=== PATIENT | male | born 1935 | race African-American/Black ===

== ENCOUNTER 2017-08-30 10:16 | Inpatient (IN) ==
--- NOTE | 2017-08-30 11:35 | Anesthesia Evaluation PreOp ---
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 GUARD DISPATCHER History: Denies Any Significant HX Other Medical History: Denies Any Significant HX Anesthesia History: No Prior Anesthetic Complications, Past Anesthesia Alcohol Use: none Drug use: none Medications and Allergies Allopurinol [Zyloprim] 100 mg PO DAILY 05/22/15 [History] Finasteride [Propecia] 5 mg PO DAILY 05/22/15 [History] Losartan [Cozaar] 50 mg PO DAILY 05/22/15 [History] Simvastatin [Zocor] 20 mg PO HS 05/22/15 [History] Aspirin [Ecotrin] 325 mg PO DAILY 08/30/17 [History] Furosemide [Lasix] 40 mg PO DAILY 08/30/17 [History] Losartan Potassium [Cozaar] 50 mg PO DAILY 08/30/17 [History] 3 Allergy/AdvReac Type Severity Reaction Status Date / Time No Known Allergies Allergy Verified 09/25/16 10:04 - Meds/Allergy Pre-op Review Medications Reviewed: Yes Allergies Reviewed: Yes Beta Blockers on Current Med List: Yes If Beta Blockers taken, Date/Time (Last Dose taken): 08/30/2017 at 0800 Anesthesia Results - Labs Laboratory Tests 07/15/15 08/26/17 08/26/17 10:40 13:06 13:06 WBC 10.2 Hgb 12.6 L Hct 39.9 Plt Count 233 PT 12.0 INR 1.12 PTT 31.1 Sodium 140 Potassium 4.2 BUN 22 Creatinine 1.29 H - Imaging EKG: report reviewed (08/26/[address] DEPRESSION , CONSIDER SUBENDOCARDIAL INJURY) Additional studies: 07/14/2017 ALEENA Impressions: Moderately sclerotic probably trileaflet aortic valve (the left cusp appears fixed and immobile). There is moderate aortic stenosis by Doppler (DI 0.38, TRACEE 1.2cm2) and severe by planimetry area 0.9cm2. 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 Left to right interatrial shunt by color flow imaging. 06/07/2017 Echo Impressions: Mild LV systolic dysfunction, LVEF 45%. Normal right ventricular size and function. A device lead was visualized in the right atrium and right ventricle. Moderate-severely calcified aortic valve leaflets. Cannot determine if bicuspid or tricuspid on this study. Moderate-severe aortic stenosis. Mild mitral regurgitation. Mild tricuspid regurgitation. Mild pulmonary hypertension. Estimated RVSP = 44 mmHg. Anesthesia Exam O2 Sat Height 1.75 m Weight 108.046 kg O2 Sat by Pulse Oximetry 97 Vital Signs Temp Pulse Resp BP Pulse Ox 97.5 F L 85 16 121/88 97 08/30/17 11:31 08/30/17 11:31 08/30/17 11:31 08/30/17 11:31 08/30/17 11:31 Height: 5'9'' Weight: 238 lbs NPO (# of Hours): 8 Pain Scale: 0 Pain Scale Used: Numeric (1 - 10) - HEENT Pupil (Motor): EOMI Mallampati: III Teeth: Missing, Poor dentition (loose lower teeth) Oral Opening: Greater than 3 - SECURITY GUARD DISPATCHER LOC: Oriented SECURITY GUARD DISPATCHER Motor: Normal RUE, Normal LUE, Normal RLE, Normal LLE, Normal Face SECURITY GUARD DISPATCHER Sensory: Normal: RUE, LUE, RLE, LLE, Face - Cardiac Rhythm: Regular Murmur: Systolic - Pulmonary Breath Sounds: bilateral Rhonchi Respiratory Effort: Symmetrical Anesthesia Assess/Plan ASA Score: 4 (Patient and family understand that patient is at increased risk for perioperative complications including myocardial infarct, arrhythmias, CVA, post op vent support/ICU stay, and . Patient wishes to proceed.) Modified Kris Scale for Level of Consciousness: Cooperative, oriented, and tranquil Anesthetic Plan: General Monitoring Plan: Standard Monitors Recovery Plan: PACU <Marybeth Santos - Last Filed: 08/30/17 13:35> Date of Encounter: 08/30/17 Anesthesia Assess/Plan Monitoring Plan: A-Line
[2017-08-30] MEDS: Ringers Solution, Lactated 1,000 ML IVC SCH (11:36)
--- NOTE | 2017-08-30 12:33 | History & Physical Report ---
Date of Encounter: 08/30/17 Time of Encounter: 12:00 24 Hour HP Update - Instructions Instructions: If the History and Physical is less than 30 days old and was completed prior to A.M. admission and or procedure and has NOT been updated on calendar day of procedure please complete this update prior to performing procedure. - Update Patient reports changes in Medical Condition: No Changes in examination, assessment, or condition: No Changes in Medication: No Preop tests/diagnostics Reviewed: Yes Surgery Remains Indicated: Yes Consent for Planned Operative Procedure(s) Verified: Yes
[2017-08-30] MEDS ORDERED: Lidocaine -MPF 2% 2 ML VIAL ONE (13:31)
[2017-08-30] MEDS ORDERED: *HR* Propofol 200 MG/20 ML VIAL IVP ONE (13:31)
[2017-08-30] MEDS ORDERED: Ondansetron 4 MG/2 ML VIAL ONE (13:31)
[2017-08-30] MEDS ORDERED: Dexamethasone 4 MG/ML VIAL ONE (13:31)
[2017-08-30] MEDS ORDERED: *HR* Succinylcholine 200 MG/10 ML VIAL IVP ONE (13:31)
[2017-08-30] MEDS ORDERED: Heparin 25,000 UNIT/500 ML D5W 25,000 UNIT/500 ML BAG IVC ONE (13:51)
[2017-08-30] MEDS ORDERED: Heparin 1,000 UNITS/500 mL NS 500 ML ONE (13:59)
[2017-08-30] MEDS ORDERED: *HR* Etomidate 40 MG/20 ML VIAL IVP ONE (14:17)
[2017-08-30] MEDS ORDERED: *HR* FentaNYL (PF) 100 MCG/2 ML VIAL ONE (14:34)
[2017-08-30] MEDS ORDERED: *HR* Midazolam HCl 2 MG/2 ML VIAL ONE (14:34)
[2017-08-30] MEDS ORDERED: *HR* Phenylephrine 10 MG/ML VIAL ONE (14:46)
[2017-08-30] MEDS ORDERED: Ondansetron 4 MG/2 ML VIAL IVP ONE (15:22)
[2017-08-30] MEDS ORDERED: Dexmedetomidine HCl 200 MCG/50 ML MLS IVC ONE (16:02)
[2017-08-30] MEDS ORDERED: Albuterol 2.5 MG/3 ML NEBULIZER ONE (16:05)
[2017-08-30] MEDS ORDERED: Albuterol 2.5 MG/3 ML NEBULIZER IH ONE (16:06)
[2017-08-30] MEDS ORDERED: Albumin Human 5% 25.0 GM/500 ML VIAL ONE (16:41)
[2017-08-30] MEDS ORDERED: Naloxone 0.4 MG/ML INJ IVP PRN (17:17)
--- NOTE | 2017-08-30 17:25 | Internal Med History&Physical ---
<Obrien,Manjula J - Last Filed: 08/30/17 17:51> Date of Encounter: 08/30/17 Time of Encounter: 17:23 Assessment and Plan (1) Acute and chronic respiratory failure with hypoxia Current visit: Yes Status: Acute wears O2 at home. Now hypoxic with saturations in the 70s following bronchoscopy requiring nonrebreather. With diffuse wheezing on exam. Multifactorial with underlying COPD with apparent exacerbation, anesthesia and possible lung malignancy. Start IV Levaquin, IV steroids and bronchodilators. Nonrebreather for now, may need BiPAP. CXR, ABG pending. Pulmonology consulted (2) Lung mass Current visit: Yes Status: Acute Presented 08/30/2017 for planned bronchoscopy. Mass reported as lesional. Await final pathology (3) Hypotension Current visit: Yes Status: Acute With SBP's in 70s to 80s post bronchoscopy. Suspect secondary to anesthesia. Hemodynamically stable, no tachycardia, maintaining mentation. IV fluids, hold home BP medication. Monitor BP Qualifiers: Hypotension type: postprocedural hypotension Qualified Code(s): I95.81 - Postprocedural hypotension (4) Hemoptysis Current visit: Yes Status: Acute Following bronchoscopy. CBC pending. Holding home ASA. (5) COPD (chronic obstructive pulmonary disease) Current visit: Yes Status: Acute per hx. wears oxygen [id number] at home. Now with acute on chronic respiratory failure as noted above. Treating for COPD exacerbation with IV fluids, IV steroids and bronchodilators. Qualifiers: COPD type: COPD with acute exacerbation Qualified Code(s): J44.1 - Chronic obstructive pulmonary disease with (acute) exacerbation (6) HTN (hypertension) Current visit: No Status: Acute per hx. holding home antihypertensives with hypotension. Resume his BP allows. Qualifiers: Hypertension type: essential hypertension Qualified Code(s): I10 - Essential (primary) hypertension (7) Aortic stenosis with trileaflet valve Current visit: Yes Status: Acute per hx. 10/2016 TTE with moderately sclerotic probably trileaflet aortic valve, moderate aortic stenosis. (8) Cardiomyopathy Current visit: No Status: Acute per hx. 10/2016 TTE ith EF 40% and reduced LV function. Has PPM. Holding home Lasix, ARB with hypotension. Resume home medications as clinical condition improves. Qualifiers: Cardiomyopathy type: unspecified Qualified Code(s): I42.9 - Cardiomyopathy , unspecified (9) DVT prophylaxis Current visit: Yes Status: Acute SCD Internal Medicine - H&P: HPI Chief complaint: hypoxia Admitted From: Home History of present illness: Mr. Faust is a 82 year old male with COPD, HTN and lung mass who presented to [facility] on 08/30/2017 for planned proctoscopy. He was subsequently hypoxic and hypotensive postprocedure therefore he was admitted for further workup and treatment. Information obtained mostly from chart review as the patient appears to be in mild resp distress and unable give many details. Per chart review, patient underwent a bronchoscopy with hypotension, hypoxia and hemoptysis postprocedure. He endorses shortness of breath, no chest pain. Past Med Surg Social Fam HX - Past Medical History Medical history: arthritis, cardiomyopathy, diabetes, hyperlipidemia, hypertension, valvular heart disease Psychiatric history: no psych history - Past Surgical History Surgical History: pacemaker/AICD - Social History Smoking Status: Unknown if ever smoked Smokeless Tobacco Status: No Alcohol use: none Drug use: none - Family History Mother Living Status: Hx Family Cancer: Yes Internal Medicine - H&P: Meds Allopurinol [Zyloprim] 100 mg PO DAILY 05/22/15 [History] Finasteride [Propecia] 5 mg PO DAILY 05/22/15 [History] Losartan [Cozaar] 50 mg PO DAILY 05/22/15 [History] Simvastatin [Zocor] 20 mg PO HS 05/22/15 [History] Aspirin [Ecotrin] 325 mg PO DAILY 08/30/17 [History] Furosemide [Lasix] 40 mg PO DAILY 08/30/17 [History] Losartan Potassium [Cozaar] 50 mg PO DAILY 08/30/17 [History] 3 Allergy/AdvReac Type Severity Reaction Status Date / Time No Known Allergies Allergy Verified 09/25/16 10:04 All Systems PM: A 10-system review of systems was performed and is negative for pertinent findings except as documented above in the HPI. - Constitutional Constitutional: no chills, no fever(s), no night sweats - EENT Eyes: no change in vision, no discharge, no pain, no photophobia Ears: no ear discharge, no ear pain, no tinnitus Nose, mouth and throat: no dysphagia, no nasal discharge, no neck pain, no sore throat - Cardiovascular Cardiovascular ROS IM: no chest pain, no diaphoresis, no dyspnea, no lightheadedness, no palpitations, no syncope - Respiratory Respiratory: cough, dyspnea, hemoptysis, no wheezing, no excessive phlegm production - Gastrointestinal Gastrointestinal: no abdominal pain, no diarrhea, no hematemesis, no hematochezia, no melena, no nausea, no vomiting - Musculoskeletal Musculoskeletal ROS IM: no numbness, no tingling - Integumentary Integumentary IM: no rash, no unusual bruising - Neurological Neurological ROS: no confusion, no convulsions, no focal weakness, no numbness, no tingling, no tremor(s) - Hematologic/Lymphatic Hematologic/Lymphatic: no easy bruising - Constitutional Vitals: Temp Pulse Resp BP Pulse Ox 97.6 F 88 30 123/68 91 08/30/17 17:20 08/30/17 17:20 08/30/17 17:20 08/30/17 17:20 08/30/17 17:20 General appearance: Present: mild distress, A&O X 3, morbidly obese - Head Head exam: Present: atraumatic, normocephalic - Eye Eye exam: Present: PERRL, conjuntiva pink, sclera anicteric Pupils: Present: PERRL - Neck Neck exam general surgery: Present: supple, trachea midline. Absent: lymphadenopathy - Respiratory Respiratory exam: Present: wheezes. Absent: accessory muscle use, rales, rhonchi - Cardiovascular Cardiovascular exam: Present: RRR, +S1, +S2. Absent: diastolic murmur, gallop, rubs, systolic murmur - GI/Abdominal GI/Abdominal exam: Present: normal bowel sounds, soft, no peritoneal signs. Absent: distended, tenderness - Extremities Exam Extremities exam: Present: warm, radial pulses palpable and symmetrical. Absent : calf tenderness, cyanotic, pedal edema - Neurological Exam Neurological exam: Present: CN II-XII intact, oriented X3, no focal deficits. Absent: pronater drift, facial droop, speech deficit - Skin Skin exam: Present: dry, intact <Peyton,Liam P - Last Filed: 08/30/17 18:37> Date of Encounter: 08/30/17 Internal Medicine - H&P: HPI History of present illness: Mr. Faust is a 82 year old male All Systems PM: A 10-system review of systems was performed and is negative for pertinent findings except as documented above in the HPI. - Constitutional Vitals: Temp Pulse Resp BP Pulse Ox 97.6 F 113 30 123/68 94 08/30/17 17:20 08/30/17 18:19 08/30/17 17:20 08/30/17 17:20 08/30/17 17:59 Internal Med - H&P Results - Labs CBC & Chem 7: 08/30/17 17:53 08/30/17 17:53 Labs: Short CBC 08/30/17 Range/Units 17:53 WBC 15.4 H D (4.3-11.1) K/mcL Hgb 13.3 (12.9-16.9) g/dL Hct 43.3 (37.5-50.1) % Plt Count 232 (140-400) K/mcL BMP 08/30/17 17:53 Sodium 137 Potassium 5.6 H Chloride 107 Carbon Dioxide 22 L BUN 19 Creatinine 1.26 Glucose 128 H Calcium 9.2 - ABG Interpretation ABG results: 08/30/17 18:21 ABG pH 7.36 ABG pCO2 48 H ABG pO2 70 L ABG HCO3 27 ABG Total CO2 28 H ABG O2 Saturation 93 L ABG Base Excess 1 - Attending Attestation I examined this patient and my medical decision-making was reviewed with the Resident Physician/ KNOCKER OFF. I agree with the documented findings, disposition and treatment plan as described except to the extent set forth below. 82/male. Patient had a left lung mass for which she underwent bronchoscopy/bronchoscopy biopsy. Postprocedure patient's saturation/blood pressure was on the lower side. It was decided to admit patient overnight for observation. On examination: Patient is wheezing and coughing mucopurulent expectoration. Assessment/plan. Antibiotics: Levofloxacin 750 mg every 24 hours Steroids: Solu-Medrol 40 mg every 8. Bronchodilators: DuoNeb every 4 hours. Close observation. Likely patient can go home tomorrow.
[2017-08-30] MEDS ORDERED: Levofloxacin 750 MG/150 ML 750 MG/150 ML BAG IVPB SCH (18:00)
[2017-08-30 18:02] LABS: Hematocrit 43.3 % (37.5-50.1); Hemoglobin 13.3 g/dL (12.9-16.9); Mean Corpuscular HGB Conc 30.7 g/dL (31.6-35.5); Mean Corpuscular Volume 87.8 fL (83.0-100.0); Mean Platelet Volume 11.6 fL (9.4-12.4); Platelet Count 232 K/mcL (140-400); Red Blood Count 4.93 M/mcL (4.19-5.50); Red Cell Distribution Width 17.5 % (11.5-14.5)
[2017-08-30 18:20] LABS: BUN/Creatinine Ratio 15 (6-26); Blood Urea Nitrogen 19 mg/dL (8-23); Calcium 9.2 mg/dL (8.6-10.3); Carbon Dioxide 22 mEq/L (23-29); Chloride 107 mEq/L (98-107); Glucose 128 mg/dL (70-105); Osmolality,Calculated 288 (280-300); Potassium 5.6 mEq/L (3.5-5.1); Sodium 137 mEq/L (136-145); eGFR For African Americans > 60 (> 60); eGFR For Non-African Americans 55 (> 60)
[2017-08-30 18:25] LABS: ABG Base Excess 1 mEq/L (-2 to 3); ABG HCO3 27 mEq/L (21-27); ABG Oxygen Saturation 93 % (95-98); ABG PCO2 48 mmHg (35-45); ABG PH 7.36 pH Units (7.32-7.45); ABG PO2 70 mmHg (85-104); ABG TCO2 28 mEq/L (20-26)
[2017-08-30] MEDS: Ipratropium/Albuterol Neb 3 ML IH SCH ×2 (19:38→23:29)
[2017-08-30] MEDS: 0.9 % Sodium Chloride 1,000 ML IVC SCH (20:45)
[2017-08-30 21:20] LABS: Appearance of Body Fluid Hazy (Clear); Volume of Body Fluid 14 mL
[2017-08-31] MEDS: MethylPREDNISolone 40 MG/ML VIAL IVP SCH ×3 (01:00→17:13)
[2017-08-31] MEDS: Ipratropium/Albuterol Neb 3 ML IH SCH ×5 (03:10→20:14)
[2017-08-31 05:18] LABS: Hematocrit 35.8 % (37.5-50.1); Mean Corpuscular HGB Conc 30.7 g/dL (31.6-35.5); Mean Corpuscular Hemoglobin 26.6 pg (28.0-33.3); Mean Corpuscular Volume 86.5 fL (83.0-100.0); Mean Platelet Volume 11.7 fL (9.4-12.4); Platelet Count 190 K/mcL (140-400); Red Blood Count 4.14 M/mcL (4.19-5.50); Red Cell Distribution Width 17.2 % (11.5-14.5)
[2017-08-31 05:38] LABS: BUN/Creatinine Ratio 17 (6-26); Blood Urea Nitrogen 22 mg/dL (8-23); Calcium 8.9 mg/dL (8.6-10.3); Carbon Dioxide 26 mEq/L (23-29); Chloride 105 mEq/L (98-107); Glucose 132 mg/dL (70-105); Osmolality,Calculated 295 (280-300); Potassium 4.2 mEq/L (3.5-5.1); Sodium 140 mEq/L (136-145); eGFR For African Americans > 60 (> 60); eGFR For Non-African Americans 54 (> 60)
[2017-08-31] MEDS: 0.9 % Sodium Chloride 1,000 ML IVC SCH (07:05)
[2017-08-31] MEDS: Finasteride 5 MG TABLET PO SCH (08:03)
[2017-08-31] MEDS: Ringers Solution, Lactated 1,000 ML IVC SCH (08:13)
--- NOTE | 2017-08-31 08:40 | Pulmonology Consult Note ---
<Kiran Fuentes - Last Filed: 08/31/17 17:55> Date of Encounter: 08/31/17 Time of Encounter: 08:37 Assessment and Plan (1) Acute and chronic respiratory failure with hypoxia Current Visit: Yes Status: Acute Pt with Hx of O2 dependent COPD Pt on 2L at home Pt dropped O2 sats into the 70s following bronchoscopy Pt started on Non rebreather Pt now on 4L NC Pt started on IV levaquin, IV steroids, Duonebs Pt reports breathing is improved now CXR showed "Multifocal left lung infiltrates may reflect pneumnia in the correct clinical setting. R infrahilar consolidation is consistent with known right lower lobe mass like consolidation." AB.36/48/70/27//1 Plan: Continue Abx, steroids, duonebs Wean O2 down to home dose (2) Lung mass Current Visit: Yes Status: Acute Pt was undergoing bronchoscopy for biopsy of RLL mass Plan: Await pathology (3) Hypotension Current Visit: Yes Status: Acute Pt had Systolic BP in the 70s and 80s post Bronchoscopy Pt on Lactated ringers IV rehydration Now hemodynamically stable Plan: Continue IV fluids Continue to hold home BP meds Qualifiers: Hypotension type: postprocedural hypotension Qualified Code(s): I95.81 - Postprocedural hypotension (4) Hemoptysis Current Visit: Yes Status: Acute S/P bronchoscopy likely 2/2 to irritation from Bronchoscopy Per patient Rate Hemoptysis is slowing down CBC: Hgb 11, hct 35.8, Plt 196 Plan: Continue to hold home ASA Continue to use SCDs for DVT PPx (5) COPD (chronic obstructive pulmonary disease) Current Visit: Yes Status: Acute Pt on Home O2 at all times. Acute exacerbation on chronic COPD Plan: Continue IV solumedrol Continue Duonebs Continue IV abx Qualifiers: COPD type: COPD with acute exacerbation Qualified Code(s): J44.1 - Chronic obstructive pulmonary disease with (acute) exacerbation (6) HTN (hypertension) Current Visit: No Status: Acute Pt c Hx of HTN Plan: Continue to hold home medications 2/2 hypotension Qualifiers: Hypertension type: essential hypertension Qualified Code(s): I10 - Essential (primary) hypertension (7) Hyperlipidemia Current Visit: No Status: Acute Pt c Hx of HLD Plan: Continue home Statin Qualifiers: Hyperlipidemia type: unspecified Qualified Code(s): E78.5 - Hyperlipidemia , unspecified (8) Cardiomyopathy Current Visit: No Status: Acute Pt c Hx of cardiomyopathy TTE 10/2016 showed EF 40% Pt has AICD and Pacemaker in place Plan: Continue to hold home Lasix, ARB 2/2 hypotension Qualifiers: Cardiomyopathy type: unspecified Qualified Code(s): I42.9 - Cardiomyopathy , unspecified (9) Aortic stenosis with trileaflet valve Current Visit: Yes Status: Acute Pt with Hx of prominent murmur on exam (10) DVT prophylaxis Current Visit: Yes Status: Acute On SCDs 2/2 hemoptysis History of Present Illness Consult date: 08/30/17 Requesting physician: Manjula Obrien Reason for consult: hypoxemia, other (acute on chronic respiratory failure) Chief complaint: Hypovolemia, Acute on Chronic Respiratory Failure, Hemoptysis History of present illness: 82 yo M c PMHx of COPD, HTN, HLD, Aortic Stenosis, DM, AICD/Pacemaker, Known RLL mass who presents to [facility] for an out patient broncoscopy for biopsy of RLL lung mass. Patient became Hypotensive and hypoxic during procedure and went into acute on chronic respiratory failure. patient also had Hemoptysis post procedure. Today patient is hemodynamically stable. he reports his breathing is better per the patient, he is now on NC. Patient reports the hemoptysis is improved as well. Past Med Surg Social Fam HX - Past Medical History Medical history: arthritis, cardiomyopathy, COPD, coronary artery disease, diabetes, hyperlipidemia, hypertension, valvular heart disease, other Psychiatric history: no psych history - Past Surgical History Surgical History: pacemaker/AICD - Social History Smoking Status: Former smoker Smokeless Tobacco Status: No Alcohol use: none Drug use: none - Family History Mother Living Status: Hx Family Cancer: Yes Medications and Allergies Allopurinol [Zyloprim] 100 mg PO DAILY 05/22/15 [History] Finasteride [Propecia] 5 mg PO DAILY 05/22/15 [History] Losartan [Cozaar] 50 mg PO DAILY 05/22/15 [History] Simvastatin [Zocor] 20 mg PO HS 05/22/15 [History] Aspirin [Ecotrin] 325 mg PO DAILY 08/30/17 [History] Furosemide [Lasix] 40 mg PO DAILY 08/30/17 [History] Losartan Potassium [Cozaar] 50 mg PO DAILY 08/30/17 [History] 3 Allergy/AdvReac Type Severity Reaction Status Date / Time No Known Allergies Allergy Verified 09/25/16 10:04 All Systems: A 10-system review of systems was performed and is negative for pertinent findings except as documented above in the HPI. - Constitutional Constitutional: no fever(s) - Cardiovascular Cardiovascular: no chest pain - Respiratory Respiratory: cough, hemoptysis - Gastrointestinal Gastrointestinal: no abdominal pain - Genitourinary Genitourinary: no dysuria - Musculoskeletal Musculoskeletal: no joint pain Physical Examination Vital Signs: Vital Signs, Last 4 Hours Temp Pulse Resp BP Pulse Ox 08/31/17 07:25 20 94 08/31/17 07:00 71 21 107/59 93 08/31/17 05:53 95 08/31/17 04:55 98.3 F 08/31/17 04:47 80 24 92/45 89 General appearance: no acute distress Eyes: nonicteric ENT: oropharynx moist Neck: supple Effort: normal Inspection: normal Auscultation: bilateral: clear Cardiovascular: regular rate and rhythm, murmur noted (Aortic Stenosis) Gastrointestinal: normoactive bowel sounds, soft, non-tender, non-distended Integumentary: normal Extremities: no cyanosis Musculoskeletal: no deformities normal mental status mood appropriate, affect normal Results - Laboratory Findings CBC and BMP: 08/31/17 04:41 08/31/17 04:41 ABG ABG pH 7.36 pH Units (7.32-7.45) 08/30/17 18:21 ABG pCO2 48 mmHg (35-45) H 08/30/17 18:21 ABG pO2 70 mmHg (85-104) L 08/30/17 18:21 ABG O2 Saturation 93 % (95-98) L 08/30/17 18:21 Abnormal lab findings: Abnormal lab results WBC 21.3 K/mcL (4.3-11.1) H 08/31/17 04:41 RBC 4.14 M/mcL (4.19-5.50) L 08/31/17 04:41 Hgb 11.0 g/dL (12.9-16.9) L D 08/31/17 04:41 Hct 35.8 % (37.5-50.1) L 08/31/17 04:41 MCH 26.6 pg (28.0-33.3) L 08/31/17 04:41 MCHC 30.7 g/dL (31.6-35.5) L 08/31/17 04:41 RDW 17.2 % (11.5-14.5) H 08/31/17 04:41 ABG pCO2 48 mmHg (35-45) H 08/30/17 18:21 ABG pO2 70 mmHg (85-104) L 08/30/17 18:21 ABG Total CO2 28 mEq/L (20-26) H 08/30/17 18:21 ABG O2 Saturation 93 % (95-98) L 08/30/17 18:21 Est GFR (Non-Af Amer) 54 (> 60) L 08/31/17 04:41 Glucose 132 mg/dL (70-105) H 08/31/17 04:41 POC Glucose 106 (58-89) H 08/30/17 17:50 Fluid Appearance Hazy (Clear) A 08/30/17 14:56 - Microbiology Findings Microbiology Findings: Microbiology, Last 48 Hours 08/30/17 14:56 Gram Stain - Final Left Lower Lobe Lung - Clinical Findings Intake & Output: Intake & Output 08/30/17 08/31/17 08/31/17 23:59 07:59 15:59 Intake Total 300 / 300 825 / 825 Output Total 900 / 900 450 / 450 Balance -600 / -600 375 / 375 Weight 112.1 kg Consult Discharge Plan - Plan Referrals: Cherry Davidson OUTSIDE MACHINIST HELPER [Advanced Practice Nurse] - 09/08/17 11:00 am <Alis Johnson S - Last Filed: 08/31/17 20:14> Date of Encounter: 08/31/17 All Systems: A 10-system review of systems was performed and is negative for pertinent findings except as documented above in the HPI. Physical Examination Vital Signs: Vital Signs, Last 4 Hours Temp Pulse Resp BP Pulse Ox 08/31/17 18:16 100 16 91 08/31/17 17:19 77 16 94 08/31/17 16:37 97.8 F 82 15 122/62 94 Results - Laboratory Findings CBC and BMP: 08/31/17 04:41 08/31/17 04:41 ABG ABG pH 7.36 pH Units (7.32-7.45) 08/30/17 18:21 ABG pCO2 48 mmHg (35-45) H 08/30/17 18:21 ABG pO2 70 mmHg (85-104) L 08/30/17 18:21 ABG O2 Saturation 93 % (95-98) L 08/30/17 18:21 Abnormal lab findings: Abnormal lab results WBC 21.3 K/mcL (4.3-11.1) H 08/31/17 04:41 RBC 4.14 M/mcL (4.19-5.50) L 08/31/17 04:41 Hgb 11.0 g/dL (12.9-16.9) L D 08/31/17 04:41 Hct 35.8 % (37.5-50.1) L 08/31/17 04:41 MCH 26.6 pg (28.0-33.3) L 08/31/17 04:41 MCHC 30.7 g/dL (31.6-35.5) L 08/31/17 04:41 RDW 17.2 % (11.5-14.5) H 08/31/17 04:41 ABG pCO2 48 mmHg (35-45) H 08/30/17 18:21 ABG pO2 70 mmHg (85-104) L 08/30/17 18:21 ABG Total CO2 28 mEq/L (20-26) H 08/30/17 18:21 ABG O2 Saturation 93 % (95-98) L 08/30/17 18:21 Est GFR (Non-Af Amer) 54 (> 60) L 08/31/17 04:41 Glucose 132 mg/dL (70-105) H 08/31/17 04:41 POC Glucose 118 (58-89) H 08/31/17 16:46 Fluid Appearance Hazy (Clear) A 08/30/17 14:56 - Microbiology Findings Microbiology Findings: Microbiology, Last 48 Hours 08/30/17 14:56 Respiratory Culture - Preliminary Left Lower Lobe Lung Normal upper respiratory tract dary. No apparent pathogens isolated. 08/30/17 14:56 Gram Stain - Final Left Lower Lobe Lung - Clinical Findings Intake & Output: Intake & Output 08/31/17 08/31/17 08/31/17 07:59 15:59 23:59 Intake Total 825 / 825 750 / 750 Output Total 450 / 450 0 / 0 100 / 100 Balance 375 / 375 0 / 0 650 / 650 Weight 112.1 kg - Attending Attestation I saw the patient with the resident agree with History and Physical exam findings. 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 Has minimal hemoptysis expected after the procedure Cardiac : Hemodynamically stable Nutrition/GI: To start diet Renal : Labs and output reviewed ID : no evidence of infection Heme onc : No acute issues Musculo skeletal / skin issues : no acute issues Disposition : Transfer to Code status: Full Code Family/POA: Didnt meet the family yet
[2017-08-31] MEDS ORDERED: Levofloxacin 750 MG/150 ML 750 MG/150 ML BAG IVPB SCH (17:00)
--- NOTE | 2017-08-31 20:06 | Electrocardiograph Report ---
[address] [address] Test Date: 2017-08-30 Pat Name: Preston Faust Department: 109 Room: 2N03 Gender: M Mend Worker: : 1935 Requested By: Liam Todd Order Number: [id number] Reading MD: Ozzie Mahoney MD Measurements Intervals Lacey Rate: 119 P: 215 HI: 176 QRS: 214 QRSD: 151 T: 35 QT: 365 QTc: 436 Interpretive Statements ELECTRONIC VENTRICULAR PACEMAKER Electronically Signed On 08-31-2017 20:04:49 EST by Ozzie Mahoney MD
[2017-09-01] MEDS: Ipratropium/Albuterol Neb 3 ML IH SCH ×4 (00:33→11:14)
[2017-09-01] MEDS: MethylPREDNISolone 40 MG/ML VIAL IVP SCH ×2 (00:52→09:12)
[2017-09-01 04:06] LABS: Hematocrit 35.6 % (37.5-50.1); Hemoglobin 11.5 g/dL (12.9-16.9); Mean Corpuscular HGB Conc 32.3 g/dL (31.6-35.5); Mean Corpuscular Hemoglobin 27.6 pg (28.0-33.3); Mean Corpuscular Volume 85.4 fL (83.0-100.0); Mean Platelet Volume 11.8 fL (9.4-12.4); Platelet Count 179 K/mcL (140-400); Red Blood Count 4.17 M/mcL (4.19-5.50); Red Cell Distribution Width 17.3 % (11.5-14.5)
[2017-09-01 04:26] LABS: BUN/Creatinine Ratio 22 (6-26); Blood Urea Nitrogen 25 mg/dL (8-23); Calcium 9.3 mg/dL (8.6-10.3); Carbon Dioxide 26 mEq/L (23-29); Chloride 106 mEq/L (98-107); Glucose 145 mg/dL (70-105); Osmolality,Calculated 303 (280-300); Potassium 4.1 mEq/L (3.5-5.1); Sodium 143 mEq/L (136-145); eGFR For African Americans > 60 (> 60); eGFR For Non-African Americans > 60 (> 60)
[2017-09-01 07:08] VITALS: BP 114/98
--- NOTE | 2017-09-01 08:54 | Discharge Summary ---
Addendum entered and electronically signed by Kate Caba DO 09:56: Discharge medications: Levaquin 750 mg 1 tablet daily x5 days Prednisone 40 mg 1 tablet daily x5 days Original Note: <Kate Caba - Last Filed: 09/01/17 08:51> Date of Encounter: 09/01/17 Time of Encounter: 08:51 - Discharge Diagnosis (1) Acute and chronic respiratory failure with hypoxia Priority: Primary Status: Acute (2) Lung mass Priority: Secondary Status: Chronic (3) Hypotension Priority: Primary Status: Acute Qualifiers: Hypotension type: postprocedural hypotension Qualified Code(s): I95.81 - Postprocedural hypotension (4) Hemoptysis Priority: Primary Status: Acute (5) COPD (chronic obstructive pulmonary disease) Priority: Secondary Status: Chronic Qualifiers: COPD type: COPD with acute exacerbation Qualified Code(s): J44.1 - Chronic obstructive pulmonary disease with (acute) exacerbation (6) HTN (hypertension) Priority: Secondary Status: Chronic Qualifiers: Hypertension type: essential hypertension Qualified Code(s): I10 - Essential (primary) hypertension (7) Aortic stenosis with trileaflet valve Priority: Secondary Status: Chronic (8) Cardiomyopathy Priority: Secondary Status: Chronic Qualifiers: Cardiomyopathy type: unspecified Qualified Code(s): I42.9 - Cardiomyopathy , unspecified - Discharge Medications Prescriptions: Levofloxacin [Levaquin] 750 mg PO DAILY #5 tablet PredniSONE [Deltasone] 60 mg PO DAILY #5 tablet Home Medications: Allopurinol [Zyloprim] 100 mg PO DAILY 05/22/15 [History] Finasteride [Propecia] 5 mg PO DAILY 05/22/15 [History] Losartan [Cozaar] 50 mg PO DAILY 05/22/15 [History] Simvastatin [Zocor] 20 mg PO HS 05/22/15 [History] Aspirin [Ecotrin] 325 mg PO DAILY 08/30/17 [History] Furosemide [Lasix] 40 mg PO DAILY 08/30/17 [History] Losartan Potassium [Cozaar] 50 mg PO DAILY 08/30/17 [History] Levofloxacin [Levaquin] 750 mg PO DAILY #5 tablet 09/01/17 [Rx] PredniSONE [Deltasone] 60 mg PO DAILY #5 tablet 09/01/17 [Rx] Allergies/Adverse Reactions: 3 Allergy/AdvReac Type Severity Reaction Status Date / Time No Known Allergies Allergy Verified 09/25/16 10:04 Procedures/tests Complete & Pending: Procedures Performed prior 72 hours Category Date Time Status ECG 12 lead ECG [ECG] Routine Y 08/30/17 18:52 Completed Primary care physician: Oj Vega MD Consults: 08/30/17 17:41 Consult to Pulmonology [CONS] Routine Consulting Provider: [facility] Reason for Consult: Acute on chronic respiratory failure Call Completed: Yes Discharging clinician: Kate Caba Anticipated date of discharge: 09/01/17 - Patient Status Disposition: Home, Self-Care Condition: Good Functional capacity at discharge: independent ambulation Overall status at discharge: patient is progressing back to baseline - Discharge Instructions Instructions: Chronic Obstructive Pulmonary Disease (DC) Follow Up With: Cherry Davidson CNP [Advanced Practice Nurse] - 09/08/17 11:00 am - Diet and Activity Diet: low fat, low cholesterol Interval History: Mr. Faust is sitting up in bed asking to go home. He states that he had a small amount of blood when he blew his nose this morning and he coughed up a small amount of blood this morning also. He denies pain. Hospital course: Mr. Faust is a 82 year old male admitted yesterday after he developed hypotension and hypoxia during a scheduled bronchoscopy for a right lower lobe lung mass. He subsequently developed hemoptysis also. His admitting diagnosis was acute on chronic respiratory failure. He uses 3 L of oxygen 24/7 at home. On the morning of discharge, he is sitting up in bed using 3 L of oxygen via nasal cannula. He is asking to go home stating that he was not planning on being admitted to the hospital after his procedure. - Time Spent with Patient Total time spent providing and/or coordinating discharge services: - Constitutional Vitals: Temp Pulse Resp BP Pulse Ox 97.8 F 86 18 114/98 95 09/01/17 07:02 09/01/17 07:02 09/01/17 07:49 09/01/17 07:02 09/01/17 07:49 General appearance: Present: A&O X 3, morbidly obese, answers questions appropriately - Head Head exam: Present: atraumatic, normocephalic - Eye Eye exam: Present: PERRL, conjuntiva pink, sclera anicteric Pupils: Present: PERRL - Neck Neck exam general surgery: Present: supple, trachea midline. Absent: lymphadenopathy - Respiratory Respiratory exam: Present: CTAB. Absent: accessory muscle use, rales, rhonchi, wheezes - Cardiovascular Cardiovascular exam: Present: RRR, +S1, +S2. Absent: diastolic murmur, gallop, rubs, systolic murmur - GI/Abdominal GI/Abdominal exam: Present: normal bowel sounds, soft, no peritoneal signs. Absent: distended, tenderness - Extremities Exam Extremities exam: Present: warm. Absent: pedal edema, tenderness Additional comments: Posterior tibial pulses palpable and symmetric - Neurological Exam Neurological exam: Present: CN II-XII intact, oriented X3, no focal deficits. Absent: pronater drift, facial droop, speech deficit - Skin Skin exam: Present: dry, intact - VTE Documentation of Mechanical Device: Intermittent pneumatic compression device <Andrei Dumas - Last Filed: 09/01/17 18:47> Date of Encounter: 09/01/17 Procedures/tests Complete & Pending: Procedures Performed prior 72 hours Category Date Time Status ECG 12 lead ECG [ECG] Routine Y 08/30/17 18:52 Completed Primary care physician: Oj Vega MD Consults: 08/30/17 17:41 Consult to Pulmonology [CONS] Routine Consulting Provider: [facility] Reason for Consult: Acute on chronic respiratory failure Call Completed: Yes Hospital course: Mr. Faust is a 82 year old male - Time Spent with Patient Total time spent providing and/or coordinating discharge services: - Constitutional Vitals: Temp Pulse Resp BP Pulse Ox 97.8 F 95 16 114/98 92 09/01/17 07:02 09/01/17 11:55 09/01/17 11:55 09/01/17 07:02 09/01/17 11:55 - Attending Attestation I conducted a face to face diagnostic evaluation of this patient and my medical decision-making was reviewed with the Resident Physician. I agree with the documented findings, disposition and treatment plan as described except to the extent set forth below: Patient reports small amount of bronchoscopy this morning significantly decreased from last night. On exam the patient is in no acute distress.. Speaking in full sentences. Lung exam reveals lungs are clear. Heart is regular. Patient is medically stable for discharge home. Andrei Dumas MD
[2017-09-01] MEDS: Finasteride 5 MG TABLET PO SCH (09:12)
== END 2017-09-01 12:25 | disposition home or self-care (01) | DRG 167 ==
LOC: SUATTDRO → ENDPAV 10:16 → 2NNU 17:18 → ICNU 17:20 → 2NNU 08-31 14:32 → ENDPAV 09-01 12:20
PROVIDERS: ADMIT Internal Medicine; ATTEND Internal Medicine

== ENCOUNTER 2017-11-21 15:40 | Inpatient (IN) ==
[2017-11-21] MEDS ORDERED: Nitroglycerin 0.4 MG TAB.SUBL SL ONE (15:46)
[2017-11-21] MEDS ORDERED: 0.9 % Sodium Chloride 500 ML IVC ONE (15:49)
--- NOTE | 2017-11-21 15:52 | Emergency Department Note ---
Disposition Clinical Impression: Chest pain Qualifiers: Chest pain type: unspecified Qualified Code(s): R07.9 - Chest pain, unspecified Lung cancer Qualifiers: Laterality: unspecified laterality Lung location: unspecified part of lung Qualified Code(s): C34.90 - Malignant neoplasm of unspecified part of unspecified bronchus or lung Congestive heart failure Qualifiers: Heart failure type: unspecified Heart failure chronicity: unspecified Qualified Code(s): I50.9 - Heart failure, unspecified Disposition: Admitted As Inpatient Condition: Fair Referrals: Oj Vega MD [Primary Care Provider] - Forms: ED Satisfaction Letter Time of Disposition: 18:07 Chest Pain HPI - General Chief Complaint: ED Chest Pain Stated Complaint: chest pain Time Seen by Provider: 11/21/17 15:42 Source: patient Mode of arrival: ambulatory Limitations: no limitations Vital Signs Reviewed: Yes Nursing Notes Reviewed: Yes - History of Present Illness HPI Narrative: 82-year-old male history of Lung Ca with radiation therapy 2 weeks with history of hypertension, diabetes, COPD, CHF with pace maker. Patient was transferred to [place] for chest pain Patient states that he has been complaining of chest pain that started today. Patient states he seemed short of breath. States pain is nonexertional across his chest. Denies any radicular symptoms. Does state that the pain goes to his back. Patient reports some nausea but no vomiting. No diaphoresis. EMS reported the patient received full dose aspirin as well as 2 sublingual nitroglycerin which improved his symptoms. - Related Data Home Medications Medication Instructions Recorded Confirmed Simvastatin [Zocor] 20 mg PO HS 05/22/15 11/21/17 Aspirin [Ecotrin] 325 mg PO DAILY 08/30/17 11/21/17 Furosemide [Lasix] 40 mg PO Q48H 08/30/17 11/21/17 Losartan Potassium [Cozaar] 50 mg PO DAILY 08/30/17 11/21/17 Allopurinol [Zyloprim 300 MG] 300 mg PO DAILY 11/21/17 11/21/17 Carvedilol [Coreg] 6.25 mg PO BID 11/21/17 11/21/17 Finasteride [Proscar] 5 mg PO DAILY 11/21/17 11/21/17 Meclizine [Antivert] 12.5 - 25 mg PO BID PRN 11/21/17 11/21/17 Allergies Allergy/AdvReac Type Severity Reaction Status Date / Time No Known Allergies Allergy Verified 10/18/17 14:04 All systems ED: reviewed and negative except as stated. Constitutional: Denies: fever Cardiovascular: Reports: chest pain Respiratory: Reports: dyspnea. Denies: cough, sputum production Gastrointestinal: Denies: abdominal pain, nausea, vomiting Chest Pain PMH - Past Medical History Medical history: Reports: arthritis, cardiomyopathy, COPD, coronary artery disease, diabetes, hyperlipidemia, hypertension, valvular heart disease, other Surgical history: Reports: pacemaker/AICD Psychiatric history: Reports: no psych history - Social History Smoking Status: Former smoker Alcohol use: Reports: none Drug use: Reports: none Physical Exam - General Limitations: no limitations General appearance: alert, in no apparent distress - Head Head exam: atraumatic - Eye Eye exam: Present: normal appearance - ENT ENT exam: normal exam, normal oropharynx, mucous membranes moist - Neck Neck exam: Present: normal inspection - Chest Chest inspection: Present: normal inspection - Respiratory Respiratory exam: Present: prolonged expiratory phase, other (diffusely diminished). Absent: respiratory distress - Cardiovascular Cardiovascular exam: Present: regular rate, normal rhythm. Absent: systolic murmur - Abdominal Exam Abdominal exam: Present: soft - Extremities Exam Extremities exam: Present: normal inspection. Absent: pedal edema - Back Exam Back exam: Present: normal inspection - Neurological Exam Neurological exam: Present: alert - Skin Skin exam: Present: warm, dry, intact, normal color Course Course Narrative: Patient seen and examined. 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 Patient had an EF of 45% as of May of last year. - Reevaluation(s) Reevaluation #1: Patient's pain was down to a 3 out of 10 with the nitroglycerin. Patient's blood pressure did drop but has been responsive to IV fluids. Time: 16:31 Reevaluation #2: Patient seen and examined. Patient states his pain is better controlled. Patient did drop his pressure with a nitroglycerin required 500 mL of fluids. Awaiting CT angios of the chest. Time: 17:21 Vital Signs Temperature 98.6 F 11/21/17 15:42 Pulse Rate 91 11/21/17 15:42 Respiratory Rate 34 11/21/17 15:42 Blood Pressure 112/77 11/21/17 15:42 O2 Sat by Pulse Oximetry 96 11/21/17 15:42 Temperature 98.4 F 11/21/17 16:18 Pulse Rate 58 11/21/17 17:03 Respiratory Rate 14 11/21/17 17:03 Blood Pressure 101/65 11/21/17 17:03 O2 Sat by Pulse Oximetry 99 11/21/17 17:03 Oxygen Delivery Oxygen Delivery Nasal Cannula Chest Pain - MDM Narrative Medical decision making narrative: 82-year-old male present for evaluation of chest pain and shortness of breath. Patient does have a history of lung cancer. Concerns for ACS versus pulmonary also. Patient's chest pain improved after nitroglycerin. Patient does not have an increasing oxygen requirement. Patient has undergone radiation therapy with his history of lung cancer. Patient does have a history of congestive heart failure. Possible worsening of congestive heart failure. Patient's chest x-ray shows signs of CHF and less likely related to pneumonia. Patient has not been having signs and symptoms of pneumonia. No fevers. Patient likely would benefit from inpatient further cardiac evaluation with serial troponins, stress test, echo. Patient is also patient's family at bedside agree. Patient's CT of the chest show no evidence of pulmonary embolism. - Lab Data Lab results reviewed: Yes I reviewed the patient's lab results. Result diagrams: 11/21/17 15:54 11/21/17 15:54 Lab Results 11/21/17 11/21/17 11/21/17 Range/Units 15:54 15:54 15:54 WBC 11.0 (4.3-11.1) K/mcL RBC 4.47 (4.19-5.50) M/mcL Hgb 11.9 L (12.9-16.9) g/dL Hct 38.1 (37.5-50.1) % MCV 85.2 (83.0-100.0) fL MCH 26.6 L (28.0-33.3) pg MCHC 31.2 L (31.6-35.5) g/dL RDW 20.1 H (11.5-14.5) % Plt Count 199 (140-400) K/mcL MPV 10.3 (9.4-12.4) fL Immature Gran % 0.5 (0-4) % Seg Neutrophils % 83.2 % Lymphocytes % 5.6 % Monocytes % 8.6 % Eosinophils % 1.7 % Basophils % 0.4 % Neutrophils # 9.2 H (1.6-8.9) K/mcL Lymphocytes # 0.6 (0.6-4.6) K/mcL Monocytes # 0.9 (0.0-1.3) K/mcL Eosinophils # 0.2 (0.0-0.6) K/mcL Basophils # 0.0 (0.0-0.2) K/mcL PT 12.4 H (9.4-12.1) Seconds INR 1.1 APTT 29.1 (26.0-36.0) Seconds Sodium (136-145) mEq/L Potassium (3.5-5.1) mEq/L Chloride (98-107) mEq/L Carbon Dioxide (23-29) mEq/L BUN (8-23) mg/dL Creatinine (0.70-1.30) mg/dL Est GFR ( Amer) (> 60) Est GFR (Non-Af Amer) (> 60) BUN/Creatinine Ratio (6-26) Glucose (70-105) mg/dL Calculated Osmolality (280-300) Calcium (8.6-10.3) mg/dL Troponin I (< 0.04) ng/mL B-Natriuretic Peptide 284 H (Less than 100) pg/mL Lipase (11-82) Units/L 11/21/17 Range/Units 15:54 WBC (4.3-11.1) K/mcL RBC (4.19-5.50) M/mcL Hgb (12.9-16.9) g/dL Hct (37.5-50.1) % MCV (83.0-100.0) fL MCH (28.0-33.3) pg MCHC (31.6-35.5) g/dL RDW (11.5-14.5) % Plt Count (140-400) K/mcL MPV (9.4-12.4) fL Immature Gran % (0-4) % Seg Neutrophils % % Lymphocytes % % Monocytes % % Eosinophils % % Basophils % % Neutrophils # (1.6-8.9) K/mcL Lymphocytes # (0.6-4.6) K/mcL Monocytes # (0.0-1.3) K/mcL Eosinophils # (0.0-0.6) K/mcL Basophils # (0.0-0.2) K/mcL PT (9.4-12.1) Seconds INR APTT (26.0-36.0) Seconds Sodium 137 (136-145) mEq/L Potassium 4.0 (3.5-5.1) mEq/L Chloride 102 (98-107) mEq/L Carbon Dioxide 27 (23-29) mEq/L BUN 24 H (8-23) mg/dL Creatinine 1.21 (0.70-1.30) mg/dL Est GFR ( Amer) > 60 (> 60) Est GFR (Non-Af Amer) 57 L (> 60) BUN/Creatinine Ratio 20 (6-26) Glucose 185 H (70-105) mg/dL Calculated Osmolality 293 (280-300) Calcium 9.6 (8.6-10.3) mg/dL Troponin I 0.03 (< 0.04) ng/mL B-Natriuretic Peptide (Less than 100) pg/mL Lipase 10 L (11-82) Units/L - Radiology Data Radiology results reviewed: Yes I reviewed the patient's radiology results. Chest X-Ray 11/21/17 15:46 IMPRESSION: Bilateral lower lung airspace disease, possibly edema. Pneumonia could have this appearance as well. The findings are likely exaggerated by low lung volumes. D/ / Antonina Gallagher Cha, MD / Antonina Gallagher Cha, MD Interpreting Provider: Antonina Gallagher Cha, MD Chest X-Ray 11/21/17 15:46 IMPRESSION: Bilateral lower lung airspace disease, possibly edema. Pneumonia could have this appearance as well. The findings are likely exaggerated by low lung volumes. D/ / Antonina Gallagher Cha, MD / Antonina Gallagher Cha, MD Interpreting Provider: Antonina Gallagher Cha, MD Chest CTA 11/21/17 15:48 IMPRESSION: No evidence of pulmonary embolism. Non opacification of several right lower lobe segmental/subsegmental arteries is likely due to mass effect from malignancy. No significant change in size of the right lower lobe mass, though mediastinal lymphadenopathy has slightly increased. New right-sided pleural effusion which may be secondary to infection, though malignant effusion remains a possibility. Scattered bilateral airspace disease is likely infectious in etiology. Consider short interval follow-up to assess for resolution. D/ / Octavio Araya MD / Octavio Araya MD Interpreting Provider: Octavio Araya MD - EKG Data EKG attestation: Yes I reviewed and interpreted this EKG. EKG results narrative: Electronic ventricular pacemaker rate of 90. No significant ST elevation or abnormalities. Similar to prior EKGs. No signs of Sgarbossa criteria Interpretation: no acute changes Heart Score - Score History: Moderately Suspicious EKG: Non Specific repolarisation Disturbance Age: Greater than 65 Risk Factors: 1-2 risk factors Troponin: Less than normal limit HEART Score Total: 5 S.B.A.RAftab - [email or web address] Situation: Demographics Background: Presenting Complaint Assessment: Vital Signs, Course and respsone to treatment, Patient/Family Expectation Recommendation: Barrier(s) to disposition, Recommendation based on pending studies, treatments, or consults S.B.A.RAftab Report Given to: Dr. Saji Hayes Repor Time: 17:55 Attestation Statement - Attestation Attestation: I examined this patient and my medical decision-making was reviewed with the Resident Physician. I agree with the documented findings, disposition and treatment plan as described except to the extent set forth below. Patient presents to the ED with chief complaint of difficulty breathing and chest pain. Patient has no history of coronary disease, but he does have a pacemaker. He went to his PCPs office who sent him in for evaluation. On examination he does not appear to be in acute distress. He is still complaining of chest pressure. Plan. The patient's pain is significantly improved with multiple doses of nitroglycerin. This has however dropped his pressure. We will give him some IV fluids. Cardiac workup pending. EKG shows a paced rhythm. Likely admission.
[2017-11-21 16:10] LABS: Basophils % 0.4 %; Eosinophils # 0.2 K/mcL (0.0-0.6); Eosinophils % 1.7 %; Hematocrit 38.1 % (37.5-50.1); Hemoglobin 11.9 g/dL (12.9-16.9); Immature Granulocytes % 0.5 % (0-4); Lymphocytes # 0.6 K/mcL (0.6-4.6); Lymphocytes % 5.6 %; Mean Corpuscular HGB Conc 31.2 g/dL (31.6-35.5); Mean Corpuscular Hemoglobin 26.6 pg (28.0-33.3); Mean Corpuscular Volume 85.2 fL (83.0-100.0); Mean Platelet Volume 10.3 fL (9.4-12.4); Monocytes # 0.9 K/mcL (0.0-1.3); Monocytes % 8.6 %; Neutrophils # 9.2 K/mcL (1.6-8.9); Platelet Count 199 K/mcL (140-400); Red Blood Count 4.47 M/mcL (4.19-5.50); Red Cell Distribution Width 20.1 % (11.5-14.5); Segmented Neutrophils % 83.2 %
[2017-11-21] MEDS ORDERED: 0.9 % Sodium Chloride 1,000 ML IVC ONE (16:18)
[2017-11-21 16:37] LABS: Troponin I 0.03 ng/mL (< 0.04)
[2017-11-21 16:38] LABS: INR 1.1; Prothrombin Time 12.4 Seconds (9.4-12.1)
[2017-11-21 16:39] LABS: BUN/Creatinine Ratio 20 (6-26); Blood Urea Nitrogen 24 mg/dL (8-23); Calcium 9.6 mg/dL (8.6-10.3); Carbon Dioxide 27 mEq/L (23-29); Chloride 102 mEq/L (98-107); Glucose 185 mg/dL (70-105); Lipase 10 Units/L (11-82); Osmolality,Calculated 293 (280-300); Sodium 137 mEq/L (136-145); eGFR For African Americans > 60 (> 60); eGFR For Non-African Americans 57 (> 60)
[2017-11-21 16:41] LABS: Activated Partial Thrombo Time 29.1 Seconds (26.0-36.0)
--- NOTE | 2017-11-21 19:41 | Internal Med History&Physical ---
Date of Encounter: 11/21/17 Time of Encounter: 19:36 Assessment and Plan (1) Chest pain Current visit: Yes Status: Acute Patient was chest pain with some relieve with nitroglycerin troponin so far is negative EKG is not helpful has been serrated with transient troponin and consult cardiology for further evaluation Qualifiers: Chest pain type: precordial pain Qualified Code(s): R07.2 - Precordial pain (2) Congestive heart failure Current visit: Yes Status: Acute Acute on chronic systolic heart failure was started on IV Lasix Qualifiers: Heart failure type: systolic Heart failure chronicity: acute on chronic Qualified Code(s): I50.23 - Acute on chronic systolic (congestive) heart failure (3) Lung cancer Current visit: Yes Status: Acute Patient undergoing radiation therapy Qualifiers: Laterality: unspecified laterality Lung location: unspecified part of lung Qualified Code(s): C34.90 - Malignant neoplasm of unspecified part of unspecified bronchus or lung (4) Hyperlipidemia Current visit: No Status: Chronic Chronic continue home medication Qualifiers: Hyperlipidemia type: pure hypercholesterolemia Qualified Code(s): E78.00 - Pure hypercholesterolemia, unspecified; E78.0 - Pure hypercholesterolemia (5) Aortic stenosis with trileaflet valve Current visit: No Status: Chronic Aortic stenosis asymptomatic at this point (6) COPD (chronic obstructive pulmonary disease) Current visit: No Status: Chronic Patient with underlying COPD no active wheezing also has lung cancer Qualifiers: COPD type: COPD with acute exacerbation Qualified Code(s): J44.1 - Chronic obstructive pulmonary disease with (acute) exacerbation (7) HTN (hypertension) Current visit: No Status: Chronic Blood pressure is low at this point would hold some blood pressure medicine Qualifiers: Hypertension type: essential hypertension Qualified Code(s): I10 - Essential (primary) hypertension Internal Medicine - H&P: HPI Chief complaint: chest pain and sob Admitted From: Emergency Dept Plans for Post Hospital Care: Home History of present illness: Mr. Faust is a 82 year old male Patient with history of COPD, lung cancer undergoing radiation, hypertension, aortic stenosis, cardiomyopathy EF 40%, diabetes, obesity, high cholesterol, pacemaker and ICD. Patient presents to ER with a chest pain started this afternoon describes a pressure and sharp pain mostly constant then relieved then it comes back again was given sublingual nitro with some relief. EKG is not helpful rhythm is paced BNP was 284 mildly elevated . chest x ray suggestive of congestive heart failure. Patient will be admitted for further evaluation. Initial troponin so far is negative given his history cardiomyopathy consult cardiology for further evaluation patient's syas he had a cardiac catheter about 3 or 4 years ago that was no intervention done Past Med Surg Social Fam HX - Past Medical History Medical history: arthritis, cardiomyopathy, COPD, coronary artery disease, diabetes, hyperlipidemia, hypertension, valvular heart disease, other Psychiatric history: no psych history - Past Surgical History Surgical History: pacemaker/AICD - Social History Smoking Status: Former smoker Smokeless Tobacco Status: No Alcohol use: none Drug use: none - Family History Mother Living Status: Hx Family Cancer: Yes Internal Medicine - H&P: Meds Simvastatin [Zocor] 20 mg PO HS 05/22/15 [History] Aspirin [Ecotrin] 325 mg PO DAILY 08/30/17 [History] Furosemide [Lasix] 40 mg PO Q48H 08/30/17 [History] Losartan Potassium [Cozaar] 50 mg PO DAILY 08/30/17 [History] Allopurinol [Zyloprim 300 MG] 300 mg PO DAILY 11/21/17 [History] Carvedilol [Coreg] 6.25 mg PO BID 11/21/17 [History] Finasteride [Proscar] 5 mg PO DAILY 11/21/17 [History] Meclizine [Antivert] 12.5 - 25 mg PO BID PRN 11/21/17 [History] 3 Allergy/AdvReac Type Severity Reaction Status Date / Time No Known Allergies Allergy Verified 10/18/17 14:04 All Systems PM: A 10-system review of systems was performed and is negative for pertinent findings except as documented above in the HPI. - Constitutional Constitutional: other - EENT Eyes: no change in vision, no discharge, no pain, no photophobia Ears: no ear discharge, no ear pain, no tinnitus Nose, mouth and throat: no dysphagia, no nasal discharge, no neck pain, no sore throat - Cardiovascular Cardiovascular ROS IM: chest pain, dyspnea, dyspnea on exertion - Respiratory Respiratory: dyspnea, dyspnea on exertion - Gastrointestinal Gastrointestinal: no abdominal pain, no diarrhea, no hematemesis, no hematochezia, no melena, no nausea, no vomiting - Musculoskeletal Musculoskeletal ROS IM: no numbness, no tingling - Integumentary Integumentary IM: no rash, no unusual bruising - Neurological Neurological ROS: no confusion, no convulsions, no focal weakness, no numbness, no tingling, no tremor(s) - Constitutional Vitals: Temp Pulse Resp BP Pulse Ox 98.4 F 58 14 101/65 99 11/21/17 16:18 11/21/17 17:03 11/21/17 17:03 11/21/17 17:03 11/21/17 17:03 General appearance: Present: mild distress - Eye Eye exam: Present: PERRL, conjuntiva pink, sclera anicteric Pupils: Present: PERRL - Respiratory Respiratory exam: Present: decreased breath sounds, prolonged expiratory phase - Cardiovascular Cardiovascular exam: Present: RRR, +S1, +S2, systolic murmur. Absent: diastolic murmur, gallop, rubs - GI/Abdominal GI/Abdominal exam: Present: distended, normal bowel sounds, soft, tenderness, no peritoneal signs - Extremities Exam Extremities exam: Present: pedal edema Internal Med - H&P Results - Labs CBC & Chem 7: 11/21/17 15:54 11/21/17 15:54 Labs: Short CBC 11/21/17 Range/Units 15:54 WBC 11.0 (4.3-11.1) K/mcL Hgb 11.9 L (12.9-16.9) g/dL Hct 38.1 (37.5-50.1) % Plt Count 199 (140-400) K/mcL Neutrophils # 9.2 H (1.6-8.9) K/mcL BMP 11/21/17 15:54 Sodium 137 Potassium 4.0 Chloride 102 Carbon Dioxide 27 BUN 24 H Creatinine 1.21 Glucose 185 H Calcium 9.6 Cardiac Enzymes 11/21/17 Range/Units 15:54 Troponin I 0.03 (< 0.04) ng/mL - Impressions ITS Impressions Chest X-Ray 11/21/17 15:46 IMPRESSION: Bilateral lower lung airspace disease, possibly edema. Pneumonia could have this appearance as well. The findings are likely exaggerated by low lung volumes. D/ / Antonina Gallagher Cha, MD / Antonina Gallagher Cha, MD Interpreting Provider: Antonina Gallagher Cha, MD Chest CTA 11/21/17 15:48 IMPRESSION: No evidence of pulmonary embolism. Non opacification of several right lower lobe segmental/subsegmental arteries is likely due to mass effect from malignancy. No significant change in size of the right lower lobe mass, though mediastinal lymphadenopathy has slightly increased. New right-sided pleural effusion which may be secondary to infection, though malignant effusion remains a possibility. Scattered bilateral airspace disease is likely infectious in etiology. Consider short interval follow-up to assess for resolution. D/ / Octavio Araya MD / Octavio Araay MD Interpreting Provider: Octavio Araya MD
[2017-11-21] MEDS ORDERED: Ondansetron 4 MG/2 ML VIAL IVP PRN (19:46)
[2017-11-21] MEDS ORDERED: MOM Conc 10 ML UD.LIQ PO PRN (19:46)
[2017-11-21] MEDS ORDERED: Naloxone 0.4 MG/ML INJ IVP PRN (19:46)
[2017-11-22 05:57] LABS: Alanine Aminotransferase 6 Units/L (7-52); Albumin 3.3 g/dL (3.5-5.7); Albumin/Globulin Ratio 0.9 (1.1-2.2); Alkaline Phosphatase 57 Units/L (34-104); Aspartate Amino Transferase 16 Units/L (13-39); BUN/Creatinine Ratio 20 (6-26); Bilirubin,Total 0.5 mg/dL (0.3-1.0); Blood Urea Nitrogen 22 mg/dL (8-23); Calcium 9.2 mg/dL (8.6-10.3); Carbon Dioxide 26 mEq/L (23-29); Chloride 106 mEq/L (98-107); Chol/HDL Ratio 3.3 (0-4.9); Cholesterol 89 mg/dL (< 200); Globulin 3.5 g/dL (2.4-3.5); Glucose 124 mg/dL (70-105); HDL Cholesterol 27 mg/dL (40-59); LDL Cholesterol,Calculated 48 mg/dL (0-99); Magnesium 2.3 mg/dL (1.6-2.6); Osmolality,Calculated 291 (280-300); Potassium 3.9 mEq/L (3.5-5.1); Sodium 138 mEq/L (136-145); Total Protein 6.8 g/dL (6.4-8.9); Triglycerides 70 mg/dL (< 150); eGFR For African Americans > 60 (> 60); eGFR For Non-African Americans > 60 (> 60)
[2017-11-22] MEDS: *HR* Enoxaparin 40 MG/0.4 ML SYRINGE SQ SCH (06:24)
--- NOTE | 2017-11-22 07:26 | Electrocardiograph Report ---
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
[2017-11-22] MEDS: Aspirin Enteric Coated 325 MG Tablet PO SCH (08:51)
[2017-11-22] MEDS: Furosemide 40 MG/4 ML VIAL IVP SCH (08:51)
[2017-11-22] MEDS: Finasteride 5 MG TABLET PO SCH (08:53)
--- NOTE | 2017-11-22 09:37 | Cardiology Consult Note ---
<Mariposa Hutton - Last Filed: 11/22/17 13:55> Date of Encounter: 11/22/17 Time of Encounter: 09:00 Assessment and Plan (1) Chest pain Current Visit: Yes Status: Acute Atypical chest pain. Began at rest yesterday while at PCP office. Worse with coughing and moving upper body. Is ache sensation with radiation to neck. Was improved with nitroglycerin yesterday. He reports he still has the same chest pain. -CXR concerning for pulmonary edema b/l. -CTA- no PE. Right pleural effusion. Non opacification of several right lower segmental/ subsegmental arteries likely due to mass effect from malignancy. -troponin 0.03, 0.03 EKG: ventricular pacemaker, HR 90. No ST changes -order Echo, troponin, NPO after midnight should Cath be needed Qualifiers: Chest pain type: precordial pain Qualified Code(s): R07.2 - Precordial pain (2) Congestive heart failure Current Visit: Yes Status: Acute Taking asa, coreg, losartan 05/2017 ECHO: LVEF 45%, moderate-severe calcified aortic valve leaflets. Mild mitral and tricuspid regurgitation. Mild pulmonary hypertension. RVSP 44mmHg. 07/2107 ALEENA: Impressions: Moderately sclerotic probably trileaflet aortic valve (the left cusp appears fixed and immobile). There is moderate aortic stenosis by Doppler (DI 0.38, TRACEE 1.2cm2) and severe by planimetry area 0.9cm2. 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 Left to right interatrial shunt by color flow imaging. Qualifiers: Heart failure type: systolic Heart failure chronicity: acute on chronic Qualified Code(s): I50.23 - Acute on chronic systolic (congestive) heart failure (3) Cardiomyopathy Current Visit: No Status: Chronic Nonischemic cardiomyopathy with BiV ICD Qualifiers: Cardiomyopathy type: unspecified Qualified Code(s): I42.9 - Cardiomyopathy , unspecified (4) Aortic stenosis with trileaflet valve Current Visit: No Status: Chronic (5) Squamous cell carcinoma of lung Current Visit: No Status: Acute -discuss with oncology the patient's prognosis and treatment for his lung cancer. He is Jehovah witness and stated he does not do chemothotherapy because of his amish but instead has done radiation for 2 weeks. He reported he is to get a PET scan soon. Qualifiers: Laterality: right Qualified Code(s): C34.91 - Malignant neoplasm of unspecified part of right bronchus or lung Discussion w patient/family: The assessment and plan as outlined above was discussed with the patient and/or family members who expressed understanding and agreement. All questions were answered. Thank you for involving us in the care of your patient. Please call with any questions. History of Present Illness Consult date: 11/22/17 Requesting physician: Lester Garcia Consult reason: chest pain and CHF Chief complaint: chest pain History of present illness: Mr. Faust is a 82 year old male with a PMH lung cancer, CHF, non ischemic cardiomyopathy with BiV ICD, aortic stenosis, HTN who presented to [facility] complaining of chest pain that began at his PCP's office. He stated that it is located in his anterior chest with radiation to his neck. He describes it as an ache that is worsened by coughing or moving his upper body. The nitro given helped to relieve it some. He denies diaphoresis, blurry vision, nausea, vomiting, abdominal pain, headache. He was recently diagnosed with lung cancer and has had 2 weeks of radiation. He is a Jehovah witness. He is a non smoker with no family history of heart disease. Past Med Surg Social Fam HX - Past Medical History Medical history: arthritis, cardiomyopathy, COPD, coronary artery disease, diabetes, hyperlipidemia, hypertension, valvular heart disease, other Psychiatric history: no psych history - Past Surgical History Surgical History: arthroscopy, pacemaker/AICD - Social History Smoking Status: Former smoker Smokeless Tobacco Status: No Alcohol use: none Drug use: none - Family History Mother Living Status: Hx Family Cancer: Yes Medications and Allergies Simvastatin [Zocor] 20 mg PO HS 05/22/15 [History] Aspirin [Ecotrin] 325 mg PO DAILY 08/30/17 [History] Furosemide [Lasix] 40 mg PO Q48H 08/30/17 [History] Losartan Potassium [Cozaar] 50 mg PO DAILY 08/30/17 [History] Allopurinol [Zyloprim 300 MG] 300 mg PO DAILY 11/21/17 [History] Carvedilol [Coreg] 6.25 mg PO BID 11/21/17 [History] Finasteride [Proscar] 5 mg PO DAILY 11/21/17 [History] Meclizine [Antivert] 12.5 - 25 mg PO BID PRN 11/21/17 [History] 3 Allergy/AdvReac Type Severity Reaction Status Date / Time No Known Allergies Allergy Verified 10/18/17 14:04 All Systems Review: The remainder of the systems were reviewed and are negative - Constitutional Constitutional: no chills, no fever(s), no headache(s) - EENT Eyes: no blurred vision - Cardiovascular Cardiovascular: chest pain at rest, dyspnea on exertion, no chest pain with exertion, no leg edema, no lightheadedness - Respiratory Respiratory: cough, dyspnea - Gastrointestinal Gastrointestinal: no abdominal pain, no diarrhea, no nausea - Genitourinary Genitourinary: no dysuria, no hematuria - Integumentary Integumentary: no erythema - Neurological Neurological: no abnormal speech, no loss of vision Physical Examination Vital Signs, Last 4 Hours Temp Pulse Resp BP Pulse Ox 11/22/17 08:56 98 11/22/17 07:28 98.2 F 87 14 96/65 99 General: Conversant, No Apparent Distress HEENT: Atraumatic, Mucus Membranes Moist Neck: No JVD Cardiac: Reg Rate and Rhythm Lungs: Normal Breath Sounds, Other (rales b/l) Neuro: Alert and responsive Abdomen: Soft, Non-Tender Skin: No rashes noted on visualized skin Musculoskeletal: No Chest Wall Tenderness Extremities: No Cyanosis, No Edema Results 11/21/17 15:54 11/22/17 05:14 Lab Results 11/21/17 11/22/17 11/22/17 22:07 05:14 05:14 Sodium 138 Potassium 3.9 Chloride 106 Carbon Dioxide 26 BUN 22 Creatinine 1.10 Glucose 124 H Calcium 9.2 Magnesium 2.3 Total Bilirubin 0.5 AST 16 ALT 6 L Alkaline Phosphatase 57 Troponin I 0.03 0.04 H* Consult Discharge Plan - Plan Referrals: Cherry Davidson CNP [Advanced Practice Nurse] - 11/25/17 11:00 am <Mike Dalal - Last Filed: 11/22/17 14:59> Date of Encounter: 11/22/17 - Attending Attestation 82 YOM with hx of PAF (declined AC). NICM (EF 45%, Moderate to severe ([id number]), recently diagnosed Lung CA who presents with atypical chest pain worse on deep breathing with no aggravating or relieving factors. Pain is non radiating and has no associated symtpoms. Patient with an unremarkable EKG and negative CE's. We discussed his atypical chest pain and moderate to severe and how his Lung CA prognosis would help in the extent of cardiac risk stratification and cardiac procedures. He is not taking chemotherapy and has a PET scan due soon likely to help establish his prognosis. With his CP being atypical I do not feel any immediate invasive cardiac testing is needed. He did mention he had a LHC in the past which is not available to review. His last stress test revealed areas of infarct but no reversibility (NICM ??). I will obtain an ECHO to evaluate his EF and during this admission. Assessment and Plan Discussion w patient/family: The assessment and plan as outlined above was discussed with the patient and/or family members who expressed understanding and agreement. All questions were answered. Thank you for involving us in the care of your patient. Please call with any questions. History of Present Illness History of present illness: All Systems Review: The remainder of the systems were reviewed and are negative Physical Examination Vital Signs, Last 4 Hours Temp Pulse Resp BP Pulse Ox 11/22/17 10:48 97.6 F 84 14 101/63 95 11/22/17 08:56 98 Results 11/21/17 15:54 11/22/17 05:14 Lab Results 11/21/17 11/22/17 11/22/17 22:07 05:14 05:14 Sodium 138 Potassium 3.9 Chloride 106 Carbon Dioxide 26 BUN 22 Creatinine 1.10 Glucose 124 H Calcium 9.2 Magnesium 2.3 Total Bilirubin 0.5 AST 16 ALT 6 L Alkaline Phosphatase 57 Troponin I 0.03 0.04 H* 11/22/17 11:15 Sodium Potassium Chloride Carbon Dioxide BUN Creatinine Glucose Calcium Magnesium Total Bilirubin AST ALT Alkaline Phosphatase Troponin I 0.04 H*
--- NOTE | 2017-11-22 18:31 | Internal Med Progress Note ---
Date of Encounter: 11/22/17 Time of Encounter: 11:00 - Assessment and plan (1) Chest pain Current Visit: Yes Status: Acute Assessment and plan: -Patient now asymptomatic but with elevated cardiac biomarkers -Cardiology consult with recommendations for echocardiogram and to keep nothing by mouth after midnight in case of cardiac catheter on 11/23/17 Qualifiers: Chest pain type: precordial pain Qualified Code(s): R07.2 - Precordial pain (2) Congestive heart failure Current Visit: Yes Status: Acute Assessment and plan: Cardiology following with recommendation for repeat echocardiogram Qualifiers: Heart failure type: systolic Heart failure chronicity: acute on chronic Qualified Code(s): I50.23 - Acute on chronic systolic (congestive) heart failure (3) Cardiomyopathy Current Visit: No Status: Chronic Assessment and plan: Nonischemic cardiomyopathy with BiV ICD Qualifiers: Cardiomyopathy type: unspecified Qualified Code(s): I42.9 - Cardiomyopathy , unspecified (4) Squamous cell carcinoma of lung Current Visit: No Status: Acute Assessment and plan: Workup in progress as an outpatient Qualifiers: Laterality: right Qualified Code(s): C34.91 - Malignant neoplasm of unspecified part of right bronchus or lung (5) DVT prophylaxis Current Visit: No Status: Acute Assessment and plan: Subcutaneous Lovenox - Subjective Interval history: Patient denies any chest pressure this morning but now has elevated cardiac biomarkers - Constitutional Vitals: Temp Pulse Resp BP Pulse Ox 97.7 F 67 16 101/54 98 11/22/17 14:43 11/22/17 14:43 11/22/17 14:43 11/22/17 14:43 11/22/17 14:43 General appearance: Present: mild distress, no acute distress - Respiratory Respiratory exam: Present: CTAB. Absent: accessory muscle use, rales, rhonchi, wheezes - Cardiovascular Cardiovascular exam: Present: RRR, +S1, +S2. Absent: diastolic murmur, gallop, rubs, systolic murmur Internal Medicine: Result - Labs CBC & Chem 7: 11/21/17 15:54 11/22/17 05:14 Labs: BMP 11/22/17 05:14 Sodium 138 Potassium 3.9 Chloride 106 Carbon Dioxide 26 BUN 22 Creatinine 1.10 Glucose 124 H Calcium 9.2 Cardiac Enzymes 11/21/17 11/22/17 11/22/17 Range/Units 22:07 05:14 11:15 Troponin I 0.03 0.04 H* 0.04 H* (< 0.04) ng/mL Liver Function 11/22/17 Range/Units 05:14 Total Bilirubin 0.5 (0.3-1.0) mg/dL AST 16 (13-39) Units/L ALT 6 L (7-52) Units/L Alkaline Phosphatase 57 (34-104) Units/L Albumin 3.3 L (3.5-5.7) g/dL - ABG Interpretation ABG results: PT/INR, D-dimer PT 12.4 Seconds (9.4-12.1) H 11/21/17 15:54 Consult Discharge Plan - Plan Referrals: Cherry Davidson CNP [Advanced Practice Nurse] - 11/25/17 11:00 am
[2017-11-23] MEDS: *HR* Enoxaparin 40 MG/0.4 ML SYRINGE SQ SCH (06:10)
--- NOTE | 2017-11-23 09:27 | Cardiology Progress Note ---
<Mariposa Hutton - Last Filed: 11/23/17 10:42> Date of Encounter: 11/23/17 Time of Encounter: 08:50 Assessment and Plan (1) Chest pain Current Visit: Yes Status: Acute Atypical chest pain. Began at rest yesterday while at PCP office. Worse with coughing and moving upper body. Is ache sensation with radiation to neck. Was improved with nitroglycerin yesterday. He reports he still has the same chest pain. -CXR concerning for pulmonary edema b/l. -CTA- no PE. Right pleural effusion. Non opacification of several right lower segmental/ subsegmental arteries likely due to mass effect from malignancy. -troponin 0.03, 0.03, 0.04, 0.04 (stable) EKG: ventricular pacemaker, HR 90. No ST changes -Echo pending, patient is currently NPO -will pursue conservative medical management since his life expectancy per oncology is 1-2yr Qualifiers: Chest pain type: precordial pain Qualified Code(s): R07.2 - Precordial pain (2) Congestive heart failure Current Visit: Yes Status: Acute Taking asa, coreg, losartan 05/2017 ECHO: LVEF 45%, moderate-severe calcified aortic valve leaflets. Mild mitral and tricuspid regurgitation. Mild pulmonary hypertension. RVSP 44mmHg. 07/2017 ALEENA: Impressions: Moderately sclerotic probably trileaflet aortic valve (the left cusp appears fixed and immobile). There is moderate aortic stenosis by Doppler (DI 0.38, TRACEE 1.2cm2) and severe by planimetry area 0.9cm2. 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 Left to right interatrial shunt by color flow imaging. Qualifiers: Heart failure type: systolic Heart failure chronicity: acute on chronic Qualified Code(s): I50.23 - Acute on chronic systolic (congestive) heart failure (3) Cardiomyopathy Current Visit: No Status: Chronic Nonischemic cardiomyopathy with BiV ICD Qualifiers: Cardiomyopathy type: unspecified Qualified Code(s): I42.9 - Cardiomyopathy , unspecified (4) Aortic stenosis with trileaflet valve Current Visit: No Status: Chronic ALEENA 07/2017 Impressions: Moderately sclerotic probably trileaflet aortic valve (the left cusp appears fixed and immobile). There is moderate aortic stenosis by Doppler (DI 0.38, TRACEE 1.2cm2) and severe by planimetry area 0.9cm2. 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 Left to right interatrial shunt by color flow imaging. (5) Squamous cell carcinoma of lung Current Visit: No Status: Acute Spoke with oncology about the patient's prognosis and treatment for his lung cancer. They said his treatment course is palliative because his lung cancer is potentially curable with chemotherapy, but since he only wants radiation they give him a 1-2yr life expectancy. He is Jehovah witness and stated he does not do chemothotherapy because of his yarsanism but instead has done radiation for 2 weeks. He is to get a PET scan soon. He last had radiation 2 weeks ago. -he has been having esophageal pain which oncology stated this is common for patients that are 2 weeks out from last radiation treatment. They recommended carafate 1g QID in addition to either diflucan or nystatin. Qualifiers: Laterality: right Qualified Code(s): C34.91 - Malignant neoplasm of unspecified part of right bronchus or lung Discussion w patient/family: The assessment and plan as outlined above was discussed with the patient and/or family members who expressed understanding and agreement. All questions were answered. Thank you for involving us in the care of your patient. Please call with any questions. Subjective Principal diagnosis: chest pain Interval history: Chest pain has resolved besides when he walked to the bathroom today he felt a little chest tightness. The echocardiogram is still pending. Objective Vital Signs, Last 4 Hours Temp Pulse Resp BP Pulse Ox 11/23/17 07:27 98.0 F 70 14 100/66 97 General: Conversant, No Apparent Distress HEENT: Atraumatic, Mucus Membranes Moist Neck: No JVD Cardiac: Reg Rate and Rhythm, No Murmur Lungs: Normal Breath Sounds, Other (rales in left lower lobe) Neuro: Alert and responsive Abdomen: Soft, Non-Tender Skin: No rashes noted on visualized skin Musculoskeletal: No Chest Wall Tenderness Extremities: No Edema Results 11/23/17 09:31 11/22/17 05:14 Lab Results 11/22/17 11/22/17 11/23/17 11:15 18:14 00:43 Troponin I 0.04 H* 0.04 H* 0.04 H* Consult Discharge Plan - Plan Referrals: Cherry Davidson CNP [Advanced Practice Nurse] - 11/25/17 11:00 am <Mike Dalal - Last Filed: 11/23/17 11:52> Date of Encounter: 11/23/17 Assessment and Plan Discussion w patient/family: The assessment and plan as outlined above was discussed with the patient and/or family members who expressed understanding and agreement. All questions were answered. Thank you for involving us in the care of your patient. Please call with any questions. I examined this patient and my medical decision-making was reviewed with the Resident Physician. I agree with the documented findings, disposition and treatment plan as described except to the extent set forth below. Atypical chest pain and severe . ECHO pending for risk stratification. Palliative therapy of recently diagnosed luing CA with radiation only (patient refuses chemotherapy since he is a Jehovas witness). Likely conservative medical management of Aortic Valve (poor prognosis without surgery) and no invasive procedures for chest pain. Discussed with patient Objective Vital Signs, Last 4 Hours Temp Pulse Resp BP Pulse Ox 11/23/17 11:09 97.7 F 76 14 93/63 99 Results 11/23/17 09:31 11/23/17 09:31 Lab Results 11/22/17 11/22/17 11/23/17 11:15 18:14 00:43 WBC Hgb Hct Plt Count Sodium Potassium Chloride Carbon Dioxide BUN Creatinine Glucose Calcium Troponin I 0.04 H* 0.04 H* 0.04 H* 11/23/17 11/23/17 09:31 09:31 WBC 11.3 H Hgb 11.4 L Hct 36.3 L Plt Count 202 Sodium 138 Potassium 3.8 Chloride 103 Carbon Dioxide 26 BUN 26 H Creatinine 1.18 Glucose 119 H Calcium 9.8 Troponin I
[2017-11-23 10:19] LABS: Basophils % 0.3 %; Eosinophils # 0.1 K/mcL (0.0-0.6); Eosinophils % 0.7 %; Hematocrit 36.3 % (37.5-50.1); Hemoglobin 11.4 g/dL (12.9-16.9); Immature Granulocytes % 0.5 % (0-4); Lymphocytes # 0.9 K/mcL (0.6-4.6); Lymphocytes % 7.6 %; Mean Corpuscular HGB Conc 31.4 g/dL (31.6-35.5); Mean Corpuscular Hemoglobin 26.6 pg (28.0-33.3); Mean Corpuscular Volume 84.6 fL (83.0-100.0); Mean Platelet Volume 10.9 fL (9.4-12.4); Monocytes # 1.4 K/mcL (0.0-1.3); Monocytes % 12.2 %; Neutrophils # 8.9 K/mcL (1.6-8.9); Platelet Count 202 K/mcL (140-400); Red Blood Count 4.29 M/mcL (4.19-5.50); Red Cell Distribution Width 20.1 % (11.5-14.5); Segmented Neutrophils % 78.7 %
[2017-11-23 10:46] LABS: BUN/Creatinine Ratio 22 (6-26); Blood Urea Nitrogen 26 mg/dL (8-23); Calcium 9.8 mg/dL (8.6-10.3); Carbon Dioxide 26 mEq/L (23-29); Chloride 103 mEq/L (98-107); Glucose 119 mg/dL (70-105); Osmolality,Calculated 292 (280-300); Potassium 3.8 mEq/L (3.5-5.1); Sodium 138 mEq/L (136-145); eGFR For African Americans > 60 (> 60); eGFR For Non-African Americans 59 (> 60)
[2017-11-23] MEDS: Aspirin Enteric Coated 325 MG Tablet PO SCH (13:02)
[2017-11-23] MEDS: Finasteride 5 MG TABLET PO SCH (13:03)
--- NOTE | 2017-11-23 14:53 | Event Note ---
Date of Encounter: 11/23/17 Time of Encounter: 14:52 - Cardiology Event Note TTE with LVEF 50%, mod-severe . Discussed and reviewed with , recommend conservative medical management with lung CA. Cardiology will sign off.
[2017-11-23] MEDS: Furosemide 40 MG/4 ML VIAL IVP SCH (15:09)
--- NOTE | 2017-11-23 17:41 | Internal Med Progress Note ---
Date of Encounter: 11/23/17 Time of Encounter: 11:00 - Assessment and plan (1) Chest pain Current Visit: Yes Status: Acute Assessment and plan: -Patient now asymptomatic but with stable elevated cardiac biomarkers -Patient is asymptomatic -Cardiology consulted with recommendations for conservative medical management due to patient's poor life expectancy due to squamous cell lung carcinoma per oncology Qualifiers: Chest pain type: unspecified Qualified Code(s): R07.9 - Chest pain, unspecified (2) Congestive heart failure Current Visit: Yes Status: Acute Assessment and plan: Cardiology following with recommendation for repeat echocardiogram which showed LVEF of 50% with moderate to severe aortic stenosis with a mean gradient of 37 mm per mercury and a peak velocity of 4.07 m/s and also with moderate pulmonary hypertension with RVSP of 49 mmHg Qualifiers: Heart failure type: systolic Heart failure chronicity: acute on chronic Qualified Code(s): I50.23 - Acute on chronic systolic (congestive) heart failure (3) Cardiomyopathy Current Visit: No Status: Chronic Assessment and plan: Nonischemic cardiomyopathy with BiV ICD Qualifiers: Cardiomyopathy type: unspecified Qualified Code(s): I42.9 - Cardiomyopathy , unspecified (4) Aortic stenosis with trileaflet valve Current Visit: No Status: Chronic Assessment and plan: Echocardiogram showed moderate to severe aortic stenosis with a mean gradient of 37 mm per mercury and a peak velocity of 4.07 m/s and also with moderate pulmonary hypertension with RVSP of 49 mmHg (5) Squamous cell carcinoma of lung Current Visit: No Status: Acute Assessment and plan: -Patient followed by hematology oncology but apparently elected for radiation versus chemotherapy due to adventism purposes. -As a result patient's prognosis poor due to only treating with radiation -Will consult hematology oncology while inpatient for any further recommendations. Qualifiers: Laterality: right Qualified Code(s): C34.91 - Malignant neoplasm of unspecified part of right bronchus or lung (6) Generalized weakness Current Visit: Yes Status: Acute Assessment and plan: -Physical therapy consult for recommendations for [facility] facility (7) DVT prophylaxis Current Visit: No Status: Acute Assessment and plan: Subcutaneous Lovenox - Subjective Interval history: Patient denies any chest pressure this morning but is pretty weak and hard to sit up in bed with concerns of taking care of patient at home so physical therapy consult for evaluation for ECF placement - Constitutional Vitals: Temp Pulse Resp BP Pulse Ox 97.4 F L 66 16 121/84 95 11/23/17 15:56 11/23/17 15:56 11/23/17 15:56 11/23/17 15:56 11/23/17 15:56 General appearance: Present: mild distress, no acute distress - Respiratory Respiratory exam: Present: CTAB. Absent: accessory muscle use, rales, rhonchi, wheezes - Cardiovascular Cardiovascular exam: Present: RRR, +S1, +S2. Absent: diastolic murmur, gallop, rubs, systolic murmur Internal Medicine: Result - Labs CBC & Chem 7: 11/23/17 09:31 11/23/17 09:31 Labs: Short CBC 11/23/17 Range/Units 09:31 WBC 11.3 H (4.3-11.1) K/mcL Hgb 11.4 L (12.9-16.9) g/dL Hct 36.3 L (37.5-50.1) % Plt Count 202 (140-400) K/mcL Neutrophils # 8.9 (1.6-8.9) K/mcL BMP 11/23/17 09:31 Sodium 138 Potassium 3.8 Chloride 103 Carbon Dioxide 26 BUN 26 H Creatinine 1.18 Glucose 119 H Calcium 9.8 Cardiac Enzymes 11/22/17 11/23/17 Range/Units 18:14 00:43 Troponin I 0.04 H* 0.04 H* (< 0.04) ng/mL - ABG Interpretation ABG results: PT/INR, D-dimer PT 12.4 Seconds (9.4-12.1) H 11/21/17 15:54 - Impressions Impressions Echocardiogram 11/22/17 10:48 Impressions: LVEF 50%. Normal LV chamber size, wall thickness and low normal function. Indeterminate diastolic function. Atypical septal motion consistent with paced rhythm. Normal right ventricular structure and function. Grossly, the aortic valve appears moderately calcified. Moderate-severe aortic stenosis. Mean gradient 37 mmHg. Peak velocity 4.07 m/s. Moderate pulmonary hypertension. Estimated RVSP is 49 mmHg. A device lead was visualized in the right atrium and right ventricle. Findings: Study Quality * Technically sub-optimal due to poor echocardiographic windows. ECG Findings * Paced rhythm. Left Ventricle * LVEF 50%. * Normal LV chamber size, wall thickness and low normal function. * Indeterminate diastolic function. * Atypical septal motion consistent with paced rhythm. Right Ventricle * Normal right ventricular structure and function. Left Atrium * Mildly dilated left atrium. Right Atrium * Mildly dilated right atrium. Interatrial Septum * Interatrial septum not well evaluated. Aortic Valve * Aortic valve not well visualized. The number of leafelts cannot be determined. * Grossly, the aortic valve appears moderately calcified. * No aortic regurgitation. * Moderate-severe aortic stenosis. Mean gradient 37 mmHg. Peak velocity 4.07 m/s. Mitral Valve * Normal mitral valve structure and function. * No mitral stenosis. * No mitral regurgitation. Tricuspid Valve * Normal tricuspid valve structure and function. * Trace tricuspid regurgitation. * Moderate pulmonary hypertension. * Estimated RVSP is 49 mmHg. Pulmonic Valve * Normal pulmonic valve structure and function. * No pulmonic regurgitation. Aorta * Normally sized aortic root. Pericardium * The pericardium appears normal. IVC * The IVC is not well evaluated. Pulmonary Artery * Normal visualized portions of the main pulmonary artery. Device lead * A device lead was visualized in the right atrium and right ventricle. Videofluoroscopic Swallow 11/23/17 00:01 IMPRESSION: Swallowing mechanism grossly within normal limits without evidence of aspiration. Please see separate speech pathology report for full discussion of findings and recommendations. D/ / Leandra Zapata MD / Leandra Zapata MD Interpreting Provider: Leandra Zpaata MD Consult Discharge Plan - Plan Referrals: Cherry Davidson CNP [Advanced Practice Nurse] - 11/25/17 11:00 am
[2017-11-24] MEDS: *HR* Enoxaparin 40 MG/0.4 ML SYRINGE SQ SCH (07:06)
[2017-11-24 07:29] LABS: Basophils % 0.3 %; Eosinophils # 0.2 K/mcL (0.0-0.6); Eosinophils % 2.1 %; Hematocrit 34.7 % (37.5-50.1); Hemoglobin 10.8 g/dL (12.9-16.9); Immature Granulocytes % 0.6 % (0-4); Lymphocytes # 0.7 K/mcL (0.6-4.6); Lymphocytes % 7.4 %; Mean Corpuscular HGB Conc 31.1 g/dL (31.6-35.5); Mean Corpuscular Hemoglobin 26.3 pg (28.0-33.3); Mean Corpuscular Volume 84.4 fL (83.0-100.0); Mean Platelet Volume 11.1 fL (9.4-12.4); Monocytes # 1.2 K/mcL (0.0-1.3); Monocytes % 12.3 %; Neutrophils # 7.7 K/mcL (1.6-8.9); Platelet Count 203 K/mcL (140-400); Red Blood Count 4.11 M/mcL (4.19-5.50); Red Cell Distribution Width 19.9 % (11.5-14.5); Segmented Neutrophils % 77.3 %
[2017-11-24] MEDS: Finasteride 5 MG TABLET PO SCH (09:04)
[2017-11-24] MEDS: Aspirin Enteric Coated 325 MG Tablet PO SCH (09:04)
[2017-11-24] MEDS: Furosemide 40 MG/4 ML VIAL IVP SCH (09:04)
[2017-11-24 09:31] LABS: BUN/Creatinine Ratio 26 (6-26); Blood Urea Nitrogen 29 mg/dL (8-23); Calcium 9.4 mg/dL (8.6-10.3); Carbon Dioxide 28 mEq/L (23-29); Chloride 102 mEq/L (98-107); Glucose 115 mg/dL (70-105); Osmolality,Calculated 291 (280-300); Potassium 3.9 mEq/L (3.5-5.1); Sodium 137 mEq/L (136-145); eGFR For African Americans > 60 (> 60); eGFR For Non-African Americans > 60 (> 60)
--- NOTE | 2017-11-24 10:22 | Oncology Inp Consult Note ---
<Katerina House S - Last Filed: 11/24/17 14:13> Date of Encounter: 11/24/17 - Data of Consult Requesting Physician: Prosper Valdivia Primary Care Provider: Oj Vega MD - Consult Narrative History of present illness: Mr. Faust is a 82 year old male Medications and Allergies Simvastatin [Zocor] 20 mg PO HS 05/22/15 [History] Aspirin [Ecotrin] 325 mg PO DAILY 08/30/17 [History] Furosemide [Lasix] 40 mg PO Q48H 08/30/17 [History] Losartan Potassium [Cozaar] 50 mg PO DAILY 08/30/17 [History] Allopurinol [Zyloprim 300 MG] 300 mg PO DAILY 11/21/17 [History] Carvedilol [Coreg] 6.25 mg PO BID 11/21/17 [History] Finasteride [Proscar] 5 mg PO DAILY 11/21/17 [History] Meclizine [Antivert] 12.5 - 25 mg PO BID PRN 11/21/17 [History] 3 Allergy/AdvReac Type Severity Reaction Status Date / Time No Known Allergies Allergy Verified 10/18/17 14:04 Oncology - Exam - Constitutional Vitals: Temp Pulse Resp BP Pulse Ox 97.9 F 84 16 112/76 98 11/24/17 11:23 11/24/17 11:23 11/24/17 11:23 11/24/17 11:23 11/24/17 11:23 Oncology - Results Labs: Short CBC 11/24/17 Range/Units 06:26 WBC 9.9 (4.3-11.1) K/mcL Hgb 10.8 L (12.9-16.9) g/dL Hct 34.7 L (37.5-50.1) % Plt Count 203 (140-400) K/mcL Neutrophils # 7.7 (1.6-8.9) K/mcL BMP 11/24/17 06:26 Sodium 137 Potassium 3.9 Chloride 102 Carbon Dioxide 28 BUN 29 H Creatinine 1.11 Glucose 115 H Calcium 9.4 Consult Discharge Plan - Plan Referrals: Cherry Davidson CNP [Advanced Practice Nurse] - 11/25/17 11:00 am - Attending Attestation 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 Bilateral mediastinal adenopathy He declined chemotherapy. He has significant coronary artery disease. 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 Added prednisone 10 mg twice a day to reduce inflammation I reassured him that his symptoms should start to get better as he is being at least 2-1/2 weeks since completion of radiation Current symptoms not typical of coronary ischemia. If he continued to have symptoms after radiation esophagitis resolves may consider further cardiology evaluation <Kirti Gonzalez L - Last Filed: 11/24/17 16:39> Date of Encounter: 11/24/17 Time of Encounter: 10:22 Assessment and Plan (1) Esophagitis Status: Acute Assessment and plan: Clinical picture consistent with acute radiation induced esophagitis. This is a clinically based diagnosed based on presentation of symptoms, would defer to cardiology to rule out cardiac etiology as well. Previously discussed prognosis with cardiology resident, patient is considered of palliative intent, his life expectancy can be estimated to be 1-2 years, however this remains an estimation and could be longer/shorter. Mr. Faust reports odynophagia, dysphagia, chest discomfort and feeling of globus in his throat with swallowing. His barium swallow was essentially normal and speech therapy has signed off. He is on a mechanically soft diet with ensure BID, inpatient RD is following and I discussed patients case with her today. She will be coming by to give further handouts and education. He will continue to see outpatient RD. He has lost about 10 more pounds since October and a total of about 40 pounds since diagnosis. May consider appetite stimulant now or in future, will discuss with treating oncologist. If symptoms do not improve with medications may consider EGD but this is not indicated at this time, typically issues with stricture or altered esophageal motility are later effects from radiation and do no occur until about 3-6 months following RT. I have prescribed carafate oral suspension TID and nystatin oral suspension for his suspected esophagitis, continue to monitor symptoms to see if this helps to improve. Per Dr. House's request I have also added prednisone BID. Please continue the above medications at discharge. I will arrange for a follow up with Dr. House in one week. Also recommended dietary considerations including consuming soft, bland foods, more frequent/small meals and avoiding hot/cold temperature foods, smoking, alcohol, acidic, spicy foods or coffee. Please refer to Dr. House's attestation below for further details. 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 He is s/p 15 treatments of palliative thoracic radiotherapy. Due to episcopal preferences (Scientologist) he declined potentially curative chemoradiation. He may be agreeable to future use of immunotherapy in case of further disease progression. He states that about 1 day prior to his presentation to ER on 11/21 he began to experience extreme sore throat, odynophagia followed by chest pain that radiated from the right of his chest to midsternum. He had a PCP appointment around the same time these symptoms began and he was transferred to ED from his PCP appointment for further work up. Reviewed cardiology notes for atypical chest pain and recommendations for conservative medical management. Past Med Surg Social Fam HX - Past Medical History Medical history: arthritis, cardiomyopathy, COPD, coronary artery disease, diabetes, hyperlipidemia, hypertension, valvular heart disease, other Psychiatric history: no psych history - Past Surgical History Surgical History: arthroscopy, pacemaker/AICD - Social History Smoking Status: Former smoker Smokeless Tobacco Status: No Alcohol use: none Drug use: none - Family History Mother Living Status: Hx Family Cancer: Yes Constitutional: Present: fatigue, weakness. Absent: anorexia, fever(s), frequent falls, weight loss Eyes: Absent: change in vision Nose, mouth and throat: Present: as per HPI, dysphagia, hoarseness, mouth pain, sore throat Cardiovascular: Present: chest pain, orthopnea. Absent: irregular heart rhythm , radiating jaw, neck or arm pain, palpitations Respiratory: Present: cough, dyspnea on exertion. Absent: hemoptysis Gastrointestinal: Present: as per HPI. Absent: abdominal pain, hematemesis, hematochezia, melena, nausea, vomiting Additional comments: denies dysuria or hematuria Musculoskeletal: Present: muscle weakness Neurological: Absent: focal weakness, frequent falls Hematologic/Lymphatic: Present: as per HPI Oncology - Exam - Constitutional Vitals: Temp Pulse Resp BP Pulse Ox 97.6 F 70 14 102/68 98 11/24/17 07:42 11/24/17 07:42 11/24/17 07:42 11/24/17 07:42 11/24/17 09:11 General appearance: cooperative, no acute distress, no febrile - Head Head exam: Present: atraumatic - Respiratory Respiratory exam: Present: CTAB. Absent: respiratory distress - Cardiovascular Cardiovascular exam: Present: RRR, +S1, +S2 - GI/Abdominal GI/Abdominal exam: Present: normal bowel sounds, soft. Absent: tenderness - Extremities Exam Extremities exam: Present: normal inspection. Absent: calf tenderness - Neurological Exam Neurological exam: Present: alert, oriented X3, strengths equal and symetr throughout - Psychiatric Psychiatric exam: Present: normal affect, normal mood - Skin Skin exam: Present: normal color, warm Oncology - Results Labs: Short CBC 11/23/17 11/24/17 Range/Units 09:31 06:26 WBC 11.3 H 9.9 (4.3-11.1) K/mcL Hgb 11.4 L 10.8 L (12.9-16.9) g/dL Hct 36.3 L 34.7 L (37.5-50.1) % Plt Count 202 203 (140-400) K/mcL Neutrophils # 8.9 7.7 (1.6-8.9) K/mcL BMP 11/23/17 11/24/17 09:31 06:26 Sodium 138 137 Potassium 3.8 3.9 Chloride 103 102 Carbon Dioxide 26 28 BUN 26 H 29 H Creatinine 1.18 1.11 Glucose 119 H 115 H Calcium 9.8 9.4
[2017-11-24] MEDS: Nystatin SUSP 5 ML UD.LIQ PO SCH ×3 (14:19→20:12)
--- NOTE | 2017-11-24 17:26 | Internal Med Progress Note ---
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 Bilateral mediastinal adenopathy -Patient followed by hematology oncology but apparently elected for radiation versus chemotherapy due to anglican purposes. -As a result patient's prognosis poor due to only treating with radiation Qualifiers: Laterality: right Qualified Code(s): C34.91 - Malignant neoplasm of unspecified part of right bronchus or lung (3) Chest pain Current Visit: Yes Status: Acute Assessment and plan: -Patient now asymptomatic but with stable elevated cardiac biomarkers -Patient is asymptomatic -Cardiology consulted with recommendations for conservative medical management due to patient's poor life expectancy due to squamous cell lung carcinoma per oncology Qualifiers: Chest pain type: unspecified Qualified Code(s): R07.9 - Chest pain, unspecified (4) Congestive heart failure Current Visit: Yes Status: Acute Assessment and plan: Cardiology following with recommendation for repeat echocardiogram which showed LVEF of 50% with moderate to severe aortic stenosis with a mean gradient of 37 mm per mercury and a peak velocity of 4.07 m/s and also with moderate pulmonary hypertension with RVSP of 49 mmHg Qualifiers: Heart failure type: systolic Heart failure chronicity: acute on chronic Qualified Code(s): I50.23 - Acute on chronic systolic (congestive) heart failure (5) Cardiomyopathy Current Visit: No Status: Chronic Assessment and plan: Nonischemic cardiomyopathy with BiV ICD Qualifiers: Cardiomyopathy type: unspecified Qualified Code(s): I42.9 - Cardiomyopathy , unspecified (6) Aortic stenosis with trileaflet valve Current Visit: No Status: Chronic Assessment and plan: Echocardiogram showed moderate to severe aortic stenosis with a mean gradient of 37 mm per mercury and a peak velocity of 4.07 m/s and also with moderate pulmonary hypertension with RVSP of 49 mmHg (7) Generalized weakness Current Visit: Yes Status: Acute Assessment and plan: -Physical therapy consult for [facility] (8) DVT prophylaxis Current Visit: No Status: Acute Assessment and plan: Subcutaneous Lovenox - Subjective Interval history: Patient still reporting of dysphagia/throat discomfort suspected secondary to radiation therapy - Constitutional Vitals: Temp Pulse Resp BP Pulse Ox 98.4 F 90 14 100/65 97 11/24/17 15:09 11/24/17 15:09 11/24/17 15:09 11/24/17 15:09 11/24/17 15:09 General appearance: Present: mild distress, no acute distress - Respiratory Respiratory exam: Present: CTAB. Absent: accessory muscle use, rales, rhonchi, wheezes - Cardiovascular Cardiovascular exam: Present: RRR, +S1, +S2. Absent: diastolic murmur, gallop, rubs, systolic murmur Internal Medicine: Result - Labs CBC & Chem 7: 11/24/17 06:26 11/24/17 06:26 Labs: Short CBC 11/24/17 Range/Units 06:26 WBC 9.9 (4.3-11.1) K/mcL Hgb 10.8 L (12.9-16.9) g/dL Hct 34.7 L (37.5-50.1) % Plt Count 203 (140-400) K/mcL Neutrophils # 7.7 (1.6-8.9) K/mcL BMP 11/24/17 06:26 Sodium 137 Potassium 3.9 Chloride 102 Carbon Dioxide 28 BUN 29 H Creatinine 1.11 Glucose 115 H Calcium 9.4 - ABG Interpretation ABG results: PT/INR, D-dimer PT 12.4 Seconds (9.4-12.1) H 11/21/17 15:54 Consult Discharge Plan - Plan Referrals: Cherry Davidson CNP [Advanced Practice Nurse] - 11/25/17 11:00 am
[2017-11-24] MEDS: predniSONE 10 MG TABLET PO SCH (18:19)
[2017-11-25] MEDS: *HR* Enoxaparin 40 MG/0.4 ML SYRINGE SQ SCH (05:01)
[2017-11-25 06:25] LABS: Basophils % 0.2 %; Eosinophils # 0.1 K/mcL (0.0-0.6); Hematocrit 33.6 % (37.5-50.1); Hemoglobin 10.5 g/dL (12.9-16.9); Immature Granulocytes % 0.7 % (0-4); Lymphocytes # 0.6 K/mcL (0.6-4.6); Mean Corpuscular HGB Conc 31.3 g/dL (31.6-35.5); Mean Corpuscular Hemoglobin 26.3 pg (28.0-33.3); Monocytes # 1.1 K/mcL (0.0-1.3); Neutrophils # 8.4 K/mcL (1.6-8.9); Platelet Count 196 K/mcL (140-400); Red Cell Distribution Width 19.4 % (11.5-14.5); Segmented Neutrophils % 81.1 %
[2017-11-25 06:33] LABS: BUN/Creatinine Ratio 29 (6-26); Blood Urea Nitrogen 30 mg/dL (8-23); Calcium 9.1 mg/dL (8.6-10.3); Carbon Dioxide 28 mEq/L (23-29); Chloride 99 mEq/L (98-107); Glucose 151 mg/dL (70-105); Osmolality,Calculated 293 (280-300); Potassium 4.1 mEq/L (3.5-5.1); Sodium 137 mEq/L (136-145); eGFR For African Americans > 60 (> 60); eGFR For Non-African Americans > 60 (> 60)
[2017-11-25 07:46] VITALS: BP 114/75
[2017-11-25] MEDS: predniSONE 10 MG TABLET PO SCH (09:19)
[2017-11-25] MEDS: Aspirin Enteric Coated 325 MG Tablet PO SCH (09:19)
[2017-11-25] MEDS: Nystatin SUSP 5 ML UD.LIQ PO SCH ×2 (09:19→14:11)
[2017-11-25] MEDS: Furosemide 40 MG/4 ML VIAL IVP SCH (09:19)
[2017-11-25] MEDS: Finasteride 5 MG TABLET PO SCH (09:19)
--- NOTE | 2017-11-25 10:14 | Discharge Summary ---
- NOTES TO OUTPATIENT PROVIDER Notes to Outpatient Provider: none Orders not resulted at time of discharge: Pending orders 11/26/17 04:00 Basic Metabolic Panel AM 0400 Complete Blood Count [HEME] AM 0400 11/27/17 04:00 Basic Metabolic Panel AM 0400 Complete Blood Count [HEME] AM 0400 Date of Encounter: 11/25/17 Time of Encounter: 10:00 - Discharge Diagnosis (1) Esophagitis Priority: Primary Status: Acute (2) Squamous cell carcinoma of lung Priority: Secondary Status: Acute Qualifiers: Laterality: right Qualified Code(s): C34.91 - Malignant neoplasm of unspecified part of right bronchus or lung (3) Chest pain Priority: Primary Status: Acute Qualifiers: Chest pain type: unspecified Qualified Code(s): R07.9 - Chest pain, unspecified (4) Congestive heart failure Priority: Secondary Status: Acute Qualifiers: Heart failure type: systolic Heart failure chronicity: acute on chronic Qualified Code(s): I50.23 - Acute on chronic systolic (congestive) heart failure (5) Cardiomyopathy Priority: Secondary Status: Chronic Qualifiers: Cardiomyopathy type: unspecified Qualified Code(s): I42.9 - Cardiomyopathy , unspecified (6) Aortic stenosis with trileaflet valve Priority: Secondary Status: Chronic (7) Generalized weakness Priority: Secondary Status: Acute Hospital course: Patient is an 82-year-old male with past medical history significant for 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 Patient reported of chest pain that started the afternoon of admission and described as pressure. In the ER, patient found to have BNP that was mildly elevated and chest x-ray suggestive of congestive heart failure. Patient was admitted for further evaluation. During patients hospital stay, his troponins were slightly elevated but stable and no ST changes on EKG. Echocardiogram show LVEF of 50% with moderate to severe aortic stenosis. Cardiology consulted with recommendations for continued medical management. 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 Oncology consulted with recommendations for supportive care with Carafate and Magic mouthwash. [facility]. - Time Spent with Patient Total time spent providing and/or coordinating discharge services: Less than 30 minutes - Discharge Medications Prescriptions: Nystatin [Nystatin Suspension] 5 ml PO QID #120 ml Home Medications: Simvastatin [Zocor] 20 mg PO HS 05/22/15 [History] Aspirin [Ecotrin] 325 mg PO DAILY 08/30/17 [History] Furosemide [Lasix] 40 mg PO Q48H 08/30/17 [History] Losartan Potassium [Cozaar] 50 mg PO DAILY 08/30/17 [History] Allopurinol [Zyloprim 300 MG] 300 mg PO DAILY 11/21/17 [History] Carvedilol [Coreg] 6.25 mg PO BID 11/21/17 [History] Finasteride [Proscar] 5 mg PO DAILY 11/21/17 [History] Meclizine [Antivert] 12.5 - 25 mg PO BID PRN 11/21/17 [History] Nystatin [Nystatin Suspension] 5 ml PO QID #120 ml 11/25/17 [Rx] Sucralfate [Carafate] 1 gm PO TID udc 11/25/17 [Rx] predniSONE [PredniSONE] 10 mg PO BIDWM 7 Days tablet 11/25/17 [Rx] Allergies/Adverse Reactions: 3 Allergy/AdvReac Type Severity Reaction Status Date / Time No Known Allergies Allergy Verified 10/18/17 14:04 Date of admission: 11/21/17 20:01 Primary care physician: Oj Vega MD Consults: 11/22/17 09:27 Consult to Nurse Navigator [CONS] Routine Comment: 11/23/17 13:10 Consult to Physical Therapy [CONS] Routine Comment: Evaluate, develop and implement POC Reason for Consult: [facility] vs [facility] (dc planning) Does patient have active BEDREST order?: No Is patient medically & hemodynamically stable?: Yes Patient assessed for mobility or mobilized this visit?: No 11/23/17 13:11 Consult to Occupational Therapy [CONS] Routine Comment: Evaluate, develop and implement POC Reason for Consult: dc planning [facility] vs [facility] Does patient have active BEDREST order?: No Is patient medically & hemodynamically stable?: Yes Patient assessed for mobility or mobilized this visit?: No Consult to Environmental Web Crawler [CONS] Routine Reason for SW Consult: Pt has HH in place. Family notified MD they would like patient to go to ECF. PT/OT order in place. 11/23/17 17:49 Consult to Oncology [CONS] Routine Consulting Provider: [facility] Reason for Consult: History of squamous cell lung cancer Call Completed: No - Constitutional Vitals: Temp Pulse Resp BP Pulse Ox 97.9 F 79 18 114/75 98 11/25/17 07:39 11/25/17 07:39 11/25/17 07:39 11/25/17 07:39 11/25/17 07:39 General appearance: Present: mild distress, no acute distress - Patient Status Disposition: Transfer SNF Condition: Fair - Discharge Instructions Instructions: Heart Failure (DC) Follow Up With: Cherry Davidson DESIGN DRAFTSMAN [Advanced Practice Nurse] -
--- NOTE | 2017-11-25 10:21 | Physician Discharge Referral ---
ExtendedCare Referral Info Institutional Level of Care: Skilled - Diagnosis (1) Esophagitis Priority: Secondary Status: Acute (2) Squamous cell carcinoma of lung Priority: Secondary Status: Acute (3) Chest pain Priority: Primary Status: Acute (4) Congestive heart failure Priority: Secondary Status: Acute (5) Cardiomyopathy Priority: Secondary Status: Chronic (6) Aortic stenosis with trileaflet valve Priority: Secondary Status: Chronic (7) Generalized weakness Status: Acute - Transfer Medications Prescriptions: Nystatin [Nystatin Suspension] 5 ml PO QID #120 ml Home Medications: Simvastatin [Zocor] 20 mg PO HS 05/22/15 [History] Aspirin [Ecotrin] 325 mg PO DAILY 08/30/17 [History] Furosemide [Lasix] 40 mg PO Q48H 08/30/17 [History] Losartan Potassium [Cozaar] 50 mg PO DAILY 08/30/17 [History] Allopurinol [Zyloprim 300 MG] 300 mg PO DAILY 11/21/17 [History] Carvedilol [Coreg] 6.25 mg PO BID 11/21/17 [History] Finasteride [Proscar] 5 mg PO DAILY 11/21/17 [History] Meclizine [Antivert] 12.5 - 25 mg PO BID PRN 11/21/17 [History] Nystatin [Nystatin Suspension] 5 ml PO QID #120 ml 11/25/17 [Rx] Sucralfate [Carafate] 1 gm PO TID udc 11/25/17 [Rx] predniSONE [PredniSONE] 10 mg PO BIDWM 7 Days tablet 11/25/17 [Rx] Allergies/Adverse Reactions: 3 Allergy/AdvReac Type Severity Reaction Status Date / Time No Known Allergies Allergy Verified 10/18/17 14:04 - Respiratory Orders Smoking Cessation: Smoking cessation has been advised. For more information, call the [place] Tobacco Quit Line at 4-925-ZLVE-NOW. CERTIFICATION: I certify that the transfer of the above named patient to an Extended Care Facility is necessary for the continuing treatment of the diagnosis listed. The above information is true and accurate reflection of patient's current condition. Confidential - Redisclosure prohibited without a patient's written consent.
[2017-11-25 13:22] LABS: Bilirubin,Urine Negative (Negative); Clarity,Urine Clear (Clear); Color,Urine Yellow (Yellow); Glucose,Urine (UA) Normal (Normal)
[2017-11-25 13:23] LABS: Blood,Urine Negative (Negative); Ketones,Urine Negative (Negative); Leukocyte Esterase,Urine Negative (Negative); Nitrite,Urine Negative (Negative); PH,Urine 6.5 pH Units (5.0-8.0); Protein,Urine Negative (Neg-Trace); Specific Gravity,Urine 1.015 (1.010-1.025); Urobilinogen,Urine Normal (Normal)
== END 2017-11-25 15:00 | DRG 391 ==
LOC: 3ANU 15:40 → EMEROO 15:40 → SUATTDRO 20:01 → 3ANU 20:47
PROVIDERS: ADMIT Internal Medicine; ATTEND Hospitalist